=== PATIENT | female | born 1940 | race Caucasian/White ===

== ENCOUNTER 2016-11-08 12:00 | Inpatient (IN) ==
--- NOTE | 2016-11-08 12:29 | EKG Report ---
Test Performed on : 11/08/2016 12:23:08 PM Test Reason : CHEST PAIN Blood Pressure : / mmHG Vent. Rate : 079 BPM Atrial Rate : 079 BPM P-R Int : 140 ms QRS Dur : 076 ms QT Int : 374 ms P-R-T Axes : 030 021 062 degrees QTc Int : 428 ms Normal sinus rhythm. Normal ECG When compared with ECG of 25-AUG-2016 10:39, No significant change was found Unconfirmed Result
--- NOTE | 2016-11-08 12:37 | Diag Imaging Result Doc PS360 ---
EXAM: CHEST-2 VIEWS HISTORY: CP TECHNIQUE: Two views COMPARISON: 08/30/2016 FINDINGS: The lungs are well expanded. The heart is not enlarged. The vessels are not distended. No change in the right-sided portacatheter. No pneumothorax. There are no infiltrates. No pleural effusions. Mild scoliosis. IMPRESSION: Stable chest. Electronically signed by Braydon Krishnan 11/08/2016 12:34 PM
--- NOTE | 2016-11-08 13:00 | PROVIDER DOCUMENTATION ---
HPI-General Adult - General Chief Complaint: Chest Pain Stated Complaint: CHEST PAIN Time Seen by Provider: 11/08/16 12:30 Source: patient Allergies/Adverse Reactions: Patient Allergies Allergy/AdvReac Type Severity Reaction Status Date / Time ampicillin Allergy Unknown Verified 08/25/16 10:11 aspirin Allergy Unknown Verified 10/25/14 10:08 chloramphenicol Allergy Unknown Verified 08/25/16 10:11 [From Chloromycetin] midazolam HCl * [From Versed] Allergy Unknown Verified 10/25/14 10:08 Penicillins Allergy Unknown Verified 10/25/14 10:08 streptomycin Allergy ANAPHYLAXIS Verified 08/25/16 10:11 lonoxin AdvReac ANAPHYLAXIS Uncoded 10/25/14 10:08 Home Medications: Home Medication List Medication Instructions Recorded Confirmed Last Taken Type Diltiazem C.d. [Cardizem Cd] 150 mg PO DAILY 10/25/14 08/29/16 08/28/16 22:00 History Glipizide [Glipizide ER] 5 mg PO BID 10/25/14 08/29/16 08/28/16 22:00 History Levothyroxine [Synthroid] 75 mcg PO DAILY 10/25/14 08/29/16 08/28/16 07:00 History Lisinopril 2.5 mg PO DAILY 10/25/14 08/29/16 08/28/16 22:00 History Metformin [Glucophage] 500 mg PO BID 10/25/14 08/29/16 08/28/16 22:00 History Omeprazole [Prilosec] 20 mg PO DAILY@0700 #30 capsule 10/25/14 08/29/16 08:00 Rx PRAVAstatin [Pravachol] 40 mg PO DAILY 10/25/14 08/29/16 08/28/16 22:00 History Sotalol [Betapace] 80 mg PO DAILY 10/25/14 08/29/16 08/28/16 22:00 History Calcium Carbonate [Calcium] 600 mg PO DAILY 08/25/16 08/29/16 08/28/16 07:00 History Cyanocobalamin (Vitamin B-12) 1,000 mcg PO DAILY 08/25/16 08/29/16 08/28/16 07: 00 History [Vitamin B-12] Loratadine [Claritin] 10 mg PO DAILY 08/25/16 08/29/16 08/28/16 07:00 History Lutein 20 mg PO DAILY 08/25/16 08/29/16 08/01/16 07:00 History Montelukast Sodium 10 mg PO DAILY 08/25/16 08/29/16 08/28/16 07:00 History Vitamin E 400 unit PO DAILY 08/25/16 08/29/16 07/31/16 07:00 History Hydrocodone/Acetaminophen [[place] 1 each PO Q4H PRN PRN #40 tablet 08/30/16 Unknown Rx 10-325 Tablet] Ondansetron HCl [Zofran] 4 mg PO Q4H PRN PRN #20 tablet 08/30/16 Unknown Rx Warfarin Sodium [Coumadin] 1 mg PO DAILY #100 tablet 08/30/16 Unknown Rx - History of Present Illness -Gen Adult Nature of Presenting Problems: Pt. is 76 yof that presents with sharp pain that is under her left arm and moves around her chest on the left side. Pt. reports the pain is increased with inspiration, touch, or lying flat. Pt. denies any SOB, N/V, or diaphoresis. Pt. states she is currently being treated for Ovarian CA and has had a double mastectomy. Pt. states she was in her oncology office this morning and when she told the GERONTOLOGICAL NURSE PRACTITIONER there about her pain she was told to come directly to the ED. Pt. denies any other symptoms at time of exam. Location of Pain/Injury: reports: chest, back. denies: none, head, face, mouth , neck, upper extremity, hand(s), abdomen, pelvis, genitalia, lower extremity, feet, upper body, lower body, generalized, other Pain Radiation: reports: no radiation. denies: arm(s), back, buttocks, chest, epigastric, feet, groin, jaw, flank (L), legs (lower), LLQ, LUQ, neck, periumbilical, flank (R), RLQ, RUQ, shoulder(s), scapula, scrotal, sternal notch , suprapubic, legs (upper), urethral, vaginal, other Quality of Pain: reports: sharp, stabbing. denies: aching, burning, cramping, dull, fullness, indigestion, pressure, tearing, throbbing, tightness Severity: reports: moderate. denies: mild, severe Onset/Duration: reports: abrupt, last night Timing: reports: still present, intermittent. denies: improving, gone now, resolved prior to arrival, constant, changing over time, getting worse Context/Activities at Onset: reports: none. denies: recent emotional stress, recent physical stress, recent trauma history, possible bad food, cold exposure , eating, out of country travel Modifying Factors: improves with: nothing Associated Symptoms: reports: pain with inspiration. denies: denies symptoms, anxiety, arm pain, back/neck pain, chest pain, constipation, cough, diaphoresis , diarrhea, dizziness, EENT symptoms, fatigue, fever/chills, genitourinary problems, headaches, heartburn, joint pain, loss of appetite, malaise, muscle aches, sinus congestion/drainage, nausea, rash, seizure, shortness of breath, sensory/motor loss, swelling/mass in abdomen, syncope, vomiting, weakness, trouble walking, other Similar Symptoms Previously?: Yes Recently seen or treated by another doctor?: Yes Review of Systems - Adult - REVIEW OF SYSTEMS - ADULT Constitutional: reports: see HPI. denies: chills, fever, fatique Eyes: reports: see HPI. denies: discharge, blurred vision, eye pain Ears, Nose, Mouth & Throat: reports: see HPI. denies: ear pain, sinus problem, mouth/dental pain, throat pain Cardiovascular: reports: see HPI. denies: chest pain, irregular heart rate, palpitations, syncope Respiratory: reports: see HPI, pleurisy. denies: cough, dyspnea on exertion, shortness of breath, wheezing Gastrointestinal: reports: see HPI. denies: abdominal pain, diarrhea, nausea, vomiting Genitourinary: reports: see HPI. denies: dysuria, discharge, hematuria, incontinence, urgency Musculoskeletal: reports: see HPI. denies: bone pain, joint pain, muscle aches , neck pain Integumentary: reports: see HPI. denies: hives, itching, rash, skin thickening Neurological: reports: see HPI. denies: ataxia, headache/migraines, numbness, seizure, tremors Psychiatric: reports: see HPI. denies: anxiety, depression, emotional problems , insomnia, panic attacks, suicidal thoughts Past History - Adult - PAST MEDICAL HISTORY-ADULT Review of Records: reports: Old Records Reviewed, Nursing Assessment Review, Medications Reviewed, Social history reviewed & non-contributory. Cardiovascular: reports: arrhythmia Respiratory: reports: denies history Gastrointestinal: reports: cholelithiasis, hemorrhoids Genitourinary: reports: denies history Musculoskeletal: reports: neck/back injury Neurological: reports: denies history Psychiatric: reports: denies history Endocrine/Immune: reports: denies history Other Conditions: reports: denies history - PRIOR SURGERIES/PROCEDURES Surgical/Procedure History: reports: appendectomy, cholecystectomy, hysterectomy , tonsillectomy (mastectomy), other - IMMUNIZATION STATUS Childhood Immunizations: See Nurse Assessment Flu Vaccine: See Nurse Assessment - FAMILY HISTORY Family History: reviewed, not pertinent - SOCIAL HISTORY Smoking: non-smoker Physical Exam-General - PHYSICAL EXAM-ADULT Initial Vital Signs Reviewed: Yes - CONSTITUTIONAL General Appearance: alert, moderate distress, thin. negative: obese, anxious, lethargic, slow to respond, obtunded, combative - EYES Eyes: PERRL/EOMI, pink conjunctivae. negative: conjuctival exudate, scleral icterus, subconjunctival hemorrhage - HEAD, EARS, NOSE, MOUTH & THROAT HENMT: normocephalic/atraumatic, moist mucous membranes. negative: angioedema, frontal tenderness, maxillary tenderness - NECK Neck: non-tender, full range of motion, supple, normal inspection. negative: lymphadenopathy, trachial deviation, thyromegaly - RESPIRATORY Respiratory: lungs clear, decreased breath sounds (Decreased due to pain and not taking a deep breath), pain on inspiration. negative: crackles, rales, rhonchi, stridor, wheezing - CARDIOVASCULAR Cardiovascular: normal peripheral pulses, regular rate, rhythm, no edema, no JVD , no murmur. negative: extra beats, friction rub, irregularly irregular - GASTROINTESTINAL (ABDOMEN) Abdominal Exam: normal bowel sounds, non tender, soft. negative: distended, guarding, rigid, rebound, tenderness, hernia, mass - LYMPHATIC Lymphatic: no adenopathy. negative: axilla node tender, cervical node tenderness - MUSCULOSKELETAL Back Exam: normal inspection, no CVA tenderness, no vertebral tenderness. negative: ecchymosis, swelling, vertebral tenderness Extremity: normal range of motion, non-tender, normal gait, normal inspection, pedal edema. negative: deformity, erythema, inflammation, tenderness Peripheral Pulses: radial (R): 2+, radial (L): 2+ - SKIN Integumentary: normal turgor, warm/dry, pallor. negative: cyanosis, diaphoresis , ecchymosis, erythema, jaundice, mottled, petechiae, purpura, rash, swelling, tenderness - NEUROLOGIC Neurologic: grossly normal, no motor/sensory deficits. negative: aphasia, facial droop, focal weakness, motor weakness, sensory deficit - PSYCHIATRIC Psych/Mental Status: normal mood/affect, normal thought content, normal thought process, oriented x 3. negative: anxious, paranoid, tearful Progress - PLAN OF CARE/RESULTS Progress/Plan/Lab Results: Vital Signs - 8 hr 11/08/16 12:04 Temperature 98.7 F Pulse Rate 80 Respiratory Rate 18 Blood Pressure 161/79 O2 Sat by Pulse Oximetry 97 Orders Category Date Time Status Cardiac Monitoring DIRECTED Care 11/08/16 12:13 Active Cardiac Monitoring DIRECTED Care 11/08/16 12:14 Inactive Oxygen Therapy- ED Nursing DIRECTED Care 11/08/16 12:13 Active Saline Loc NOW Care 11/08/16 12:13 Active Saline Loc NOW Care 11/08/16 12:14 Inactive CHEST-2 VIEWS [RAD] Stat Exams 11/08/16 12:13 Completed CBC WITH ELECTRONIC DIFF [HEME] Stat Lab 11/08/16 12:13 Ordered CK PROFILE [SP CHEM] Stat Lab 11/08/16 12:13 Ordered COMPREHENSIVE METABOLIC PANEL [CHEM] Stat Lab 11/08/16 12:13 Ordered D-DIMER [address] [COAG] Stat Lab 11/08/16 12:13 Ordered MAGNESIUM [CHEM] Stat Lab 11/08/16 12:13 Ordered PRO B-NATRIURETIC PEPTIDE Stat Lab 11/08/16 12:[address]IME WITH INR PL [COAG] Stat Lab 11/08/16 12:[address] [COAG] Stat Lab 11/08/16 12:13 Ordered TROPONIN T Stat Lab 11/08/16 12:13 Ordered EKG [EKG] Stat Ther 11/08/16 12:13 Draft Discussed results and plan of care with patient. Patient agrees with plan and verbalizes understanding. Result Diagrams: 11/08/16 13:00 11/08/16 13:00 - XRAY 1 XRAY Study: Chest XRAY Interpretation: Stable chest ([place]) - CT/MRI 1 CT Study: Thorax (1. Acute PE on the right with a moderate clot burden as described. Small left pleural effusion an dmild left basilar subsegmental atelectasis. (Francisco)) CT Results: See note - CONSULTS/PCP/HOSPITALIST Notification #1 *Consult/PCP/Hospitalist*: Dr. Shaw Time Discussed: 15:51 Reason/Comments: Admission Consult Disposition: Admit Departure - Departure Date of Disposition Decision: 11/08/16 Time of Disposition Decision: 15:33 DIAGNOSIS: Hyperglycemia Pulmonary embolism Qualifiers: Pulmonary embolism type: other Chronicity: acute Acute cor pulmonale presence: without acute cor pulmonale Qualified Code(s): I26.99 - Other pulmonary embolism without acute cor pulmonale Leukocytosis Qualifiers: Leukocytosis type: unspecified Qualified Code(s): D72.829 - Elevated white blood cell count, unspecified Disposition: ADMITTED INPATIENT 09 Certified Medical Emergency: Emergent Condition: Stable Referrals and Follow-Ups: Ata Pugh MD [Primary Care Provider] - - Critical Care Note This patient required my direct & personal management of CC.: No Attestation - Physician/ JA Attestation Patient care was provided by Advanced Practice Provider:: Yes Advanced Practice Provider:: Debbie Vallejo (The physician is on site and did have face to face contact with the patient. ) Advanced Practice Provider documentation review:: The Mid-level provider documentation, treatment plan and medical decision making was reviewed by the physician who agrees with all treatment and medical decision making by the P. The physician spent face to face time with patient:: Yes Advanced Practice Provider documentation review:: Supervising physician onsite and consulted in the evaluation and care of this patient. The physician did have a face to face encounter with the patient.
[2016-11-08 13:22] LABS: BASO% 0.1 % (0.0-0.8); HEMATOCRIT 35.6 % (37.0-47.0); HEMOGLOBIN 11.4 g/dL (12.0-16.0); IMM GRAN% 1.6 % (0.0-0.5); LYMPH# 2.26 X1000 (1.2-3.4); LYMPH% 9.1 % (20.5-51.1); MANUAL DIFF NEEDED? NO; MCV 84.2 FL (81-99); MONO# 1.92 X1000 (0.11-0.59); MONO% 7.7 % (1.7-9.3); MPV 8.8 FL (7.4-10.4); NEUT% 81.5 % (42.2-75.2); PLT 149 X1000 (130-400); RBC 4.23 XMIL (4.2-5.4)
[2016-11-08 13:31] LABS: PTT PL 31.8 Seconds (22.6-43.9)
[2016-11-08 13:33] LABS: AGAP 10; ALBUMIN 3.3 g/dL (3.5-5.0); ALKALINE PHOSPHATASE 133 U/L (32-104); BUN 10 mg/dL (8-22); CALCIUM 9.1 mg/dL (8.8-10.2); CHLORIDE 100 mmol/L (98-107); CK PROFILE 12 U/L (24-173); COSMO 281; GOT 12 U/L (10-30); GPT 13 U/L (10-36); MAGNESIUM 1.5 mg/dL (1.5-2.7); POTASSIUM 5.2 mmol/L (3.5-5.1); SODIUM 136 mmol/L (136-145); TCO2 25 mmol/L (25-35); TOTAL PROTEIN 6.4 g/dL (6.3-8.3)
[2016-11-08 13:51] LABS: INR 1.05 (0.86-1.15); PROTIME 14.6 Seconds (12.1-15.5)
--- NOTE | 2016-11-08 15:21 | Diag Imaging Result Doc PS360 ---
EXAM: CT THORAX W/CONTRAST INDICATION: Left sided sharp pain in chest TECHNIQUE: Dose reduction protocol was used. COMPARISON: None. FINDINGS: There are filling defects seen in central branches of the right pulmonary artery leading to the right upper lobe and right lower lobe consistent with acute pulmonary emboli. Clot burden is moderate. The heart is not enlarged. There is patchy aortic atherosclerotic calcification. There is no evidence of aortic aneurysm. There is no significant mediastinal or hilar lymphadenopathy. There is a small left pleural effusion and mild left basilar atelectasis. The lungs are clear otherwise. IMPRESSION: 1.Acute pulmonary embolism on the right with a moderate clot burden as described. 2.Small left pleural effusion and mild left basilar subsegmental atelectasis. The findings were discussed with Rosy Martinez MD at 11/08/2016 3:18 PM. Electronically signed by Pankaj Francisco 11/08/2016 3:19 PM
[2016-11-08] MEDS ORDERED: LOVENOX 1 MG/KG SUBQ ONE (15:38)
[2016-11-08] MEDS ORDERED: LOVENOX ONE (15:44)
--- NOTE | 2016-11-08 15:45 | ED EKG INTERP ---
This chart was entered by Mehreen Bird Scribe, acting as scribe for Rosy Martinez MD. EKG Interpretation - EKG Time of EKG reading by physician:: 12:23 EKG Read and Signed by:: Rosy Martinez EKG Interpretation (*Must complete 3 of following elements*): Normal Rate: 79 Rhythm: NORMAL SINUS [place]: normal QRS: normal AL Interval: normal ST Wave: normal Attestation - Physician/ JA Attestation Patient care was provided by Advanced Practice Provider:: No The physician spent face to face time with patient:: Yes Advanced Practice Provider documentation review:: Supervising physician onsite and consulted in the evaluation and care of this patient. The physician did have a face to face encounter with the patient. This chart was documented by the indicated scribe, (Mehreen Bird Scribe) and accurately reflects the services I performed and decisions made by meJuan Wenli X, MD, as attested by the provider's signature.
[2016-11-08] MEDS ORDERED: ZOFRAN IV PRN (15:51)
[2016-11-08] MEDS ORDERED: NS 1,000 ML IV ONE (15:51)
[2016-11-08] MEDS: SEPTRA DS PO SCH ×2 (16:21→21:03)
[2016-11-08] MEDS ORDERED: ZOFRAN ODT PO PRN (18:05)
[2016-11-08] MEDS: NORCO-10 PO PRN (18:46)
--- NOTE | 2016-11-08 19:07 | HISTORY AND PHYSICAL ---
CHIEF COMPLAINT: Chest pain, left chest to left axillary area. HISTORY OF PRESENT ILLNESS: This is a 76-year-old female who presented to the emergency room complaining of a sharp pain that started in her left axillary area. She states it then moved around to the left side of her chest. It did increase with inspiration or with palpation. She denied any shortness of breath, nausea, vomiting. She is currently being treated for ovarian cancer. She was being evaluated by her oncology physician and after informing him of this pain, she was sent to the emergency room. She was found to have a D-dimer of 1.4. CTA pulmonary was performed which revealed acute pulmonary embolism on the right with a moderate clot burden, a small left pleural effusion with mild left basilar subsegmental atelectasis. She was given 1 mg/kg of Lovenox and admitted for further evaluation and treatment. PAST MEDICAL HISTORY: 1. History of left breast cancer status post bilateral mastectomy. 2. Ovarian cancer, currently receiving treatment. 3. Diabetes mellitus. 4. Gastroesophageal reflux disease. 5. Hypertension. 6. Deep vein thrombosis left lower extremity in April 2016. PAST SURGICAL HISTORY: Appendectomy, cholecystectomy, cataract removal, hysterectomy, mastectomy, bilateral tonsillectomy. SOCIAL HISTORY: She denies alcohol, tobacco, or illicit drug use. ALLERGIES: Ampicillin, aspirin, Chloromycetin, Versed, penicillin which causes unknown reaction, streptomycin which causes anaphylaxis, Levoxine which causes anaphylaxis. HOME MEDICATIONS: Zofran 4 mg p.o. p.r.n., Cardizem CD 150 daily, lutein 20 mg daily, metformin 500 b.i.d., fluconazole 100 daily, lisinopril 2.5 at bedtime, Synthroid 75 mcg daily, Coumadin 1 mg daily, Pravachol 40 at bedtime, Betapace 80 at bedtime, Claritin 10 daily, Prilosec 20 daily, [place] 10/325 q.4 hours p.r.n., glipizide ER 5 b.i.d. REVIEW OF SYSTEMS: A 14 point review of systems is discussed with patient with pertinent positives stated in HPI. She denied palpitations, syncope, dizziness, shortness of breath, PND, orthopnea, cough, fever chills, nausea, vomiting, diarrhea, constipation, black or bloody vomitus, black or bloody stools. PHYSICAL EXAMINATION: GENERAL: This is a 76-year-old female who is sitting in the bed, in no distress. VITAL SIGNS: Blood pressure is 127/92, with a heart rate of 79, respirations are 18, temperature is 98.9 degrees, with room air saturations 98%. HEENT: Head is normocephalic, atraumatic. Pupils equal, round, react to light. EOMs are intact. Sclerae are anicteric. Mucous membranes are dry. NECK: Supple with trachea midline. CARDIOVASCULAR: Regular rate and rhythm. S1 and S2 appreciated. PULMONARY: Breath sounds are clear. They are decreased in bilateral bases with no increased work of breathing noted. GASTROINTESTINAL: Abdomen is soft, nontender, nondistended. Bowel sounds in all 4 quadrants. BACK: No CVAT. No spine tenderness. MUSCULOSKELETAL: Good range of motion of joints. NEUROLOGIC: She is alert and oriented x3. EXTREMITIES: No clubbing, cyanosis, or edema. Calves are nontender. Pulses are palpable x4. LABS: WBC is 24.8, with hemoglobin 11.4, hematocrit 35.6, and platelets 149,000. D-dimer is 1.4 with an INR of 1.05. Sodium is 136, potassium 5.2, BUN 10, creatinine 0.8, with a glucose of 285. Troponin is less than 0.010. CTA pulmonary revealed acute pulmonary embolus on the right with a moderate amount of clot burden. Chest x-ray revealed a stable chest. CTA also revealed left basilar subsegmental atelectasis. ASSESSMENT: 1. Pulmonary embolus, acute. 2. Leukocytosis. 3. Left subsegmental atelectasis. 4. Diabetes mellitus type 2. 5. Gastroesophageal reflux disease. 6. Hypertension. 7. Ovarian cancer, currently receiving treatment. PLAN: She will be admitted to the hospital. She will be placed on telemetry. We will give gentle IV hydration. We will continue Lovenox 1 mg/kg b.i.d. Will give 5 mg of warfarin tonight. We will get daily INRs. We will hold her antidiabetic medications especially her metformin as she has had contrast. We will place her on pattern blood glucose with sliding scale insulin. We will continue the rest of her medications as appropriate. We will add blood cultures onto her ER labs. We will continue Bactrim b.i.d. Further treatments pending hospital course. Dictated by RAMONITA Rm for Genaro Shaw MD cc: RAMONITA Rm MD
[2016-11-08] MEDS ORDERED: COUMADIN PO ONE (21:00)
[2016-11-08] MEDS: PRINIVIL PO SCH (21:02)
[2016-11-08] MEDS: PRAVACHOL PO SCH (21:02)
[2016-11-08] MEDS: GLUCOTROL XL PO SCH (21:02)
[2016-11-08] MEDS: BETAPACE PO SCH (21:02)
[2016-11-08] MEDS: HUMALOG SUBQ SCH (21:55)
[2016-11-09] MEDS: NORCO-10 PO PRN ×2 (00:02→06:05)
--- NOTE | 2016-11-09 04:53 | HISTORY AND PHYSICAL ---
ADDENDUM: Patient seen and standing. She notes that she went to Dr. Olvera's office today was complaining of left-sided chest pain. They christina labs and sent to the ER. Upon evaluation in the ER she was noted to have a right pulmonary emboli with large clot burden and therefore was felt best that she be admitted to the hospital. She is currently taking Coumadin only prophylactically, her INR is 1.4. She is not taking it therapeutically. She has not had any previous clots in the past. She does have a known history of ovarian cancer. PHYSICAL EXAM: VITAL SIGNS: Stable. GENERAL: She is awake, alert, she is very pleasant to talk with. She is in no respiratory distress. CV: Regular rate. CHEST: Clear. PLAN: Will admit patient to the hospital. IV Lovenox for the next 24 hours and then will consider either Eliquis, Coumadin or Xarelto depending on insurance coverage. Patient is noted to have a white count elevated at 24. Her CT of the chest did not show any type of infection. We will check urine and blood culture. Will not start antibiotics presently as this certainly can be inflammatory at this point. cc: Genaro Shaw MD
[2016-11-09] MEDS: PRILOSEC PO SCH (06:05)
[2016-11-09] MEDS: SYNTHROID PO SCH (06:05)
[2016-11-09] MEDS: HUMALOG SUBQ SCH ×2 (06:19→11:53)
[2016-11-09] MEDS ORDERED: NORCO-10 PO PRN (07:59)
[2016-11-09] MEDS ORDERED: LOVENOX SUBQ SCH (08:00)
[2016-11-09 08:05] LABS: HEMATOCRIT 33.1 % (37.0-47.0); HEMOGLOBIN 10.6 g/dL (12.0-16.0); MCV 84.2 FL (81-99); MPV 9.1 FL (7.4-10.4); RBC 3.93 XMIL (4.2-5.4)
[2016-11-09 08:14] LABS: INR 1.32 (0.86-1.15); PROTIME 17.4 Seconds (12.1-15.5)
[2016-11-09 08:26] LABS: AGAP 9; ALBUMIN 3.2 g/dL (3.5-5.0); ALKALINE PHOSPHATASE 130 U/L (32-104); BUN 7 mg/dL (8-22); CALCIUM 8.4 mg/dL (8.8-10.2); CHLORIDE 104 mmol/L (98-107); COSMO 274; GOT 11 U/L (10-30); GPT 11 U/L (10-36); POTASSIUM 3.6 mmol/L (3.5-5.1); SODIUM 138 mmol/L (136-145); TCO2 25 mmol/L (25-35); TOTAL PROTEIN 6.1 g/dL (6.3-8.3)
[2016-11-09] MEDS ORDERED: GLUCOPHAGE PO SCH (09:00)
[2016-11-09] MEDS: CLARITIN PO SCH (09:11)
[2016-11-09] MEDS: SINGULAIR PO SCH (09:11)
[2016-11-09] MEDS: CARDIZEM CD PO SCH ×2 (09:11→21:01)
[2016-11-09] MEDS: CARDIZEM PO SCH ×2 (09:11→20:59)
[2016-11-09] MEDS: LASIX IV SCH ×2 (09:11→21:02)
[2016-11-09] MEDS: GLUCOTROL XL PO SCH ×2 (09:11→20:59)
[2016-11-09] MEDS: SEPTRA DS PO SCH ×2 (09:23→20:59)
[2016-11-09] MEDS: PATIENT'S OWN MED PO SCH (09:23)
--- NOTE | 2016-11-09 16:00 | PROGRESS NOTE ---
DATE: 11/09/2016 SUBJECTIVE: Ms. Verde has no complaints. At present, she states that she is having intermittent pain just at her lower left rib cage. It does increase with cough or inspiration. She does state her pain medications are relieving the pain very well. OBJECTIVE: Vital Signs: Blood pressure is 117/65 with a heart rate of 75, respirations 18, temperature 97.6 degrees oral with O2 saturations of 99%-100% on 2 L nasal cannula. Cardiovascular: Regular rate and rhythm. S1 and S2 are appreciated. Pulmonary: Breath sounds are clear with no increased work of breathing noted. Gastrointestinal: Abdomen is soft, nontender, nondistended. Bowel sounds in all 4 quadrants. Extremities: No clubbing, cyanosis, or edema. Calves are nontender. Pulses are palpable x4. Neurologic: She is alert and oriented x3. LABORATORY DATA: WBC is 17.3 with hemoglobin 10.6, hematocrit 33.1 and platelets of 139,000. Sodium is 138, potassium 3.6. BUN 7, creatinine 0.7 with blood sugars ranging in the 85-208 range. ASSESSMENT: 1. Deep venous thrombosis left lower extremity. 2. Acute pulmonary embolus. 3. Leukocytosis. 4. Left subsegmental atelectasis. 5. Diabetes mellitus, type 2. 6. Gastroesophageal reflux disease. 7. Hypertension. 8. Ovarian cancer, currently receiving treatment. PLAN: We will continue with the current medical regimen. She remains afebrile. White count is decreasing. We will continue to monitor as her CT of the chest did not show any infection and blood cultures and urine cultures continue pending. The patient states that she cannot afford Xarelto. We will start 15 mg b.i.d. Hopefully, she will be able to go home tomorrow. Dictated by RAMONITA Rm for Genaro Shaw MD cc: RAMONITA Rm MD
[2016-11-09] MEDS: HUMALOG DOSE (PARKWAY) SUBQ SCH ×2 (16:21→22:11)
[2016-11-09] MEDS: PRAVACHOL PO SCH (20:59)
[2016-11-09] MEDS: BETAPACE PO SCH (20:59)
[2016-11-09] MEDS: XARELTO PO SCH (21:00)
[2016-11-09] MEDS: PRINIVIL PO SCH (21:01)
[2016-11-10 02:11] LABS: BILIRUBIN URINE NEGATIVE (NEGATIVE); BLOOD URINE 4+ (NEGATIVE); CLARITY CLEAR (CLEAR); COLOR YELLOW; GLUCOSE URINE NEGATIVE (NEGATIVE); LEUKOCYTES URINE TRACE (NEGATIVE); NITRITE URINE NEGATIVE (NEGATIVE); PROTEIN URINE NEGATIVE (NEGATIVE); UROBILINOGEN URINE NORMAL
[2016-11-10 02:24] LABS: URINE CULTURE PL NEEDED? YES; URINE EPITHELIAL CELLS <10 /HPF (<10); URINE WBC <10 /HPF (<10)
[2016-11-10 02:25] LABS: URINE SMALL ROUND CELLS TRANSITIONAL PRESENT; URINE SOURCE CLEAN CATCH
--- NOTE | 2016-11-10 03:48 | PROGRESS NOTE ---
DATE: 11/09/2016 ADDENDUM REPORT SUBJECTIVE: Patient is seen and examined. She is awake, alert. She is in no distress. She is still having some left-sided chest pain. It is unclear as to the etiology of this. She states it hurts worse with movement and with a deep breath. Interestingly, she is having no right-sided chest pain which is where the CT showed the pulmonary emboli. PHYSICAL EXAMINATION: Vital Signs: Stable. General: She is awake, alert, lying quietly in the bed, pleasant to talk with. Neck: Supple. Cardiovascular: Regular rate. Chest: Clear. PLAN: We will continue her Lovenox today. We will wait to see if Xarelto is affordable. If so, we will transition her to Xarelto and discharge home in the a.m. Currently her white count actually decreased from 24 down to 17. We will start her on antibiotic although I believe the white count is more inflammatory from her recent steroid. We will follow. cc: Genaro Shaw MD
[2016-11-10] MEDS: PRILOSEC PO SCH (06:06)
[2016-11-10] MEDS: SYNTHROID PO SCH (06:06)
[2016-11-10] MEDS: HUMALOG DOSE (PARKWAY) SUBQ SCH ×2 (06:07→11:47)
[2016-11-10 06:58] LABS: HEMATOCRIT 34.6 % (37.0-47.0); MCH 26.5 PG (27-31); MCHC 31.8 g/dL (33-37); MCV 83.4 FL (81-99); MPV 9.5 FL (7.4-10.4); RBC 4.15 XMIL (4.2-5.4)
[2016-11-10 07:17] LABS: AGAP 10; ALBUMIN 3.3 g/dL (3.5-5.0); ALKALINE PHOSPHATASE 188 U/L (32-104); BUN 8 mg/dL (8-22); CALCIUM 8.6 mg/dL (8.8-10.2); CHLORIDE 102 mmol/L (98-107); COSMO 278; GOT 15 U/L (10-30); GPT 13 U/L (10-36); POTASSIUM 4.4 mmol/L (3.5-5.1); SODIUM 139 mmol/L (136-145); TCO2 28 mmol/L (25-35); TOTAL PROTEIN 6.2 g/dL (6.3-8.3)
[2016-11-10] MEDS: CARDIZEM PO SCH (09:55)
[2016-11-10] MEDS: SINGULAIR PO SCH (09:55)
[2016-11-10] MEDS: SEPTRA DS PO SCH (09:55)
[2016-11-10] MEDS: GLUCOTROL XL PO SCH (09:55)
[2016-11-10] MEDS: LASIX IV SCH (09:56)
[2016-11-10] MEDS: CARDIZEM CD PO SCH (09:56)
[2016-11-10] MEDS: CLARITIN PO SCH (09:56)
[2016-11-10] MEDS: XARELTO PO SCH (09:56)
[2016-11-10] MEDS: PATIENT'S OWN MED PO SCH (09:58)
[2016-11-10 11:32] VITALS: BP 100/63
--- NOTE | 2016-11-11 08:11 | DISCHARGE SUMMARY ---
ADMISSION DATE: 11/08/2016 DISCHARGE DATE: 11/10/2016 ADDENDUM REPORT Patient was seen and examined this morning by myself. She is awake, alert. She is in no distress. Notes that her left-sided chest wall pain is actually improved. Still having it, but nothing as severe as it was. Denies any current palpitations. Denies any fevers or chills. Notes that she tolerates Xarelto well. Patient is awake and alert. Her lungs are clear. She is in no distress. DISPOSITION: Patient will be discharged home on Xarelto. Will follow up outpatient with primary care. cc: Genaro Shaw MD
--- NOTE | 2016-11-11 14:20 | DISCHARGE SUMMARY ---
ADMISSION DATE: 11/08/2016 DISCHARGE DATE: 11/10/2016 DIAGNOSES: 1. Deep venous thrombosis left lower extremity. 2. Acute pulmonary embolus. 3. Leukocytosis. Resolving. 4. Left subsegmental atelectasis. 5. Diabetes mellitus type 2. 6. Gastroesophageal reflux disease. 7. Ovarian cancer. Currently receiving treatment per Dr. Olvera. DIAGNOSTICS: 1. On 11/08/2016 CT of the chest revealed acute pulmonary embolism on the right with a moderate clot burden, a small left pleural effusion and mild left basilar subsegmental atelectasis. 2. Blood cultures x2 revealed no growth after 48 hours. 3. Urine culture is pending. HOSPITAL COURSE: Ms. Verde presented to the emergency room under the guidance of Dr. Olvera and his nurse practitioner as she was having some left lower chest that did radiate around to her back. She was found to have a right-sided pulmonary embolus with filling defects seen and in the central branches of the right pulmonary artery leading to the right upper lobe and right lower lobe. Clot burden is moderate. She was started on Lovenox 1 mg/kg. Once we verified that she could afford Xarelto this was started. During the hospitalization she has denied any shortness of breath. She has continued to have some left lower rib cage pain. This is mostly on taking a deep breath and moving. She was noted to have a white count of 24 with urine that revealed 10-20 microscopic red blood cells, less than 10 white microscopic white blood cells. Urine culture is pending. She was placed on Bactrim. PHYSICAL EXAMINATION: Cardiovascular: Regular rate and rhythm. S1 and S2 appreciated. Pulmonary: Breath sounds are clear with no increased work of breathing. Chest does rise and fall symmetrically with respiration. Gastrointestinal: Soft, nontender, nondistended with bowel sounds in all 4 quadrants. Musculoskeletal: Good range of motion of joints. Neurologic: She is alert and oriented x3 with cranial nerves 2-12 grossly intact. Extremities: No clubbing, cyanosis, or edema. Calves are nontender. Pulses are palpable x4. Vital Signs: Blood pressure is 134/63 with a heart rate of 72, respirations 18, temperature 98.6 degrees oral with room air saturations of 94%-97%. DISCHARGE ACTIVITY: As tolerated. DISCHARGE DIET: Diabetic. DISCHARGE MEDICATIONS: Zofran 4 mg p.o. q.4 hours p.r.n., Cardizem CD 150 mg daily, Glucophage 500 p.o. b.i.d., fluconazole 100 daily, lisinopril 2.5 at bedtime, Synthroid 75 mcg daily, Pravachol 40 mg at bedtime, Betapace 80 at bedtime, Claritin 10 mg daily, Prilosec 20 mg daily, Glipizide 5 b.i.d., Lasix 40 mg daily for 4 days, Bactrim-DS 1 tablet b.i.d. for 7 days, Flonase nose spray 1 spray to each nostril daily, Xarelto 15 mg 1 p.o. b.i.d. for 21 days then 20 mg daily, start on day 22. FOLLOWUP: She is to follow up with Dr. Olvera within the next week, sooner if needed. She is being discharged home in stable condition with family members. TIME SPENT: This is a greater than 30 minute discharge. Dictated by RAMONITA Rm for Genaro Shaw MD cc: RAMONITA Rm MD
== END 2016-11-10 12:32 | disposition home or self-care (01) ==
LOC: P.ED 12:00 → P.MEDSURG 16:25
PROVIDERS: ATTEND Family Medicine

== ENCOUNTER 2018-03-19 11:08 | Inpatient (IN) ==
--- NOTE | 2018-03-19 11:48 | Diag Imaging Result Doc PS360 ---
EXAM: CHEST-PORTABLE HISTORY: sob met ca TECHNIQUE: Chest single view COMPARISON: 03/05/2018 FINDINGS: Moderate sized left-sided pleural effusion remains. It is similar to the prior study. There is basilar atelectasis on the left and there may be underlying infiltrates. The right lung remains well expanded and clear. No change in the right-sided portacatheter. IMPRESSION: Stable chest. Electronically signed by Braydon Krishnan 03/19/2018 11:46 AM
[2018-03-19] MEDS ORDERED: LASIX IV ONE (11:54)
[2018-03-19 12:19] LABS: BASO# 0.02 X1000 (0.0-0.2); BASO% 0.1 % (0.0-0.8); EOS# 0.01 X1000 (0.0-0.7); HEMATOCRIT 34.8 % (37.0-47.0); HEMOGLOBIN 10.8 g/dL (12.0-16.0); IMM GRAN# 0.25 X1000 (0.0-0.04); LYMPH# 1.07 X1000 (1.2-3.4); LYMPH% 4.2 % (20.5-51.1); MCH 29.6 PG (27-31); MCV 95.3 FL (81-99); MONO# 1.81 X1000 (0.11-0.59); MPV 8.5 FL (7.4-10.4); NEUT# 22.52 X1000 (1.4-6.5); NEUT% 87.7 % (42.2-75.2); PLT 277 X1000 (130-400); RBC 3.65 XMIL (4.2-5.4); RDW 17.9 % (11.5-14.5); WBC 25.68 X1000 (4.8-10.8)
[2018-03-19 12:34] LABS: AGAP 10; ALBUMIN 2.5 g/dL (3.5-5.0); ALKALINE PHOSPHATASE 139 U/L (32-104); BUN 9 mg/dL (8-22); CALCIUM 8.1 mg/dL (8.8-10.2); CHLORIDE 90 mmol/L (98-107); COSMO 271; CREATININE 0.5 mg/dL (0.5-0.9); ESTIMATED GFR > 60; GLUCOSE 165 mg/dL (70-104); GOT 14 U/L (10-30); GPT 6 U/L (10-36); MAGNESIUM 1.5 mg/dL (1.5-2.7); POTASSIUM 3.4 mmol/L (3.5-5.1); SODIUM 134 mmol/L (136-145); TCO2 34 mmol/L (25-35); TOTAL PROTEIN 4.7 g/dL (6.3-8.3)
--- NOTE | 2018-03-19 12:40 | EKG Report ---
Test Performed on : 03/19/2018 11:29:06 AM Test Reason : chest tightness Blood Pressure : / mmHG Vent. Rate : 084 BPM Atrial Rate : 084 BPM P-R Int : 132 ms QRS Dur : 072 ms QT Int : 370 ms P-R-T Axes : 046 -11 -38 degrees QTc Int : 437 ms Sinus rhythm. with premature atrial complexes. Anterior infarct (cited on or before 02-MAR-2017) Abnormal ECG When compared with ECG of 02-MAR-2017 19:12, premature atrial complexes. are now present Questionable change in initial forces of Septal leads Nonspecific T wave abnormality now evident in Inferior leads Nonspecific T wave abnormality, worse in Anterolateral leads Unconfirmed Result
[2018-03-19 12:48] LABS: BANDS 1 % (0-1); LYMPHS 6 % (21-51); MONO 9 % (1-9); SEGS 84 % (42-75)
[2018-03-19] MEDS ORDERED: ZOSYN 3.375 GM in NS 50 ML IV ONE (13:53)
--- NOTE | 2018-03-19 13:53 | PROVIDER DOCUMENTATION ---
This chart was entered by Ana Cristina Jon Scribe, acting as scribe for Jeanie Davis MD. HPI-Respiratory General - General Chief Complaint: Shortness of Breath Stated Complaint: SOB Time Seen by Provider: 03/19/18 11:41 Source: patient Allergies/Adverse Reactions: Patient Allergies Allergy/AdvReac Type Severity Reaction Status Date / Time aspirin Allergy Severe SWELLING Verified 03/05/18 08:48 ampicillin Allergy RASH Verified 03/05/18 08:48 chloramphenicol Allergy Unknown Verified 03/05/18 08:48 [From Chloromycetin] digoxin [From Lanoxin] Allergy ANAPHYLAXIS Verified 03/05/18 08:48 Penicillins Allergy ITCHING/katrin Verified 03/05/18 08:48 h streptomycin Allergy ANAPHYLAXIS Verified 03/05/18 08:48 midazolam HCl * [From Versed] AdvReac wild Verified 03/05/18 08:48 Home Medications: Home Medication List Medication Instructions Recorded Confirmed Last Taken Type Metformin [Glucophage] 500 mg PO BID 10/25/14 03/05/18 03/04/18 21:00 History PRAVAstatin [Pravachol] 40 mg PO HS 10/25/14 03/05/18 03/04/18 21:00 History Sotalol [Betapace] 80 mg PO HS 10/25/14 03/05/18 03/04/18 21:00 History Montelukast Sodium 10 mg PO DAILY 08/25/16 03/05/18 03/05/18 06:00 History Diltiazem HCl [Diltiazem ER] 180 mg PO QHS 03/02/17 03/05/18 03/04/18 21:00 History Omeprazole [Prilosec] 40 mg PO DAILY@0700 03/02/17 03/05/18 03/02/18 History Rivaroxaban [Xarelto] 20 mg PO DAILY 03/03/17 03/05/18 03/02/18 History Levothyroxine [Synthroid] 100 microgm PO DAILY@0700 #30 tab 03/06/17 03/05/18 06:00 Rx Ondansetron [Zofran Odt] 8 mg PO Q8H PRN #20 tab.rapdis 06/06/17 03/05/18 Unknown Rx Escitalopram Oxalate [Lexapro] 10 mg PO DAILY 03/05/18 03/05/18 03/05/18 06:00 History Fentanyl 25 Microgm/Hr Patch 1 each TD Q72H 03/05/18 03/05/18 03/04/18 21:00 History [Duragesic 25 Microgm/Hr Patch] Hydrocodone/Acetaminophen [[place] 1 each PO Q6-8H PRN PRN 03/05/18 03/05/1803/05 00:00 History 10-325 Tablet] Loratadine [Claritin] 10 mg PO DAILY 03/05/18 03/05/18 03/05/18 06:00 History - History of Present Illness-Resp Nature of Presenting Problem: Patient is a 78 year old female who presents to the ED via EMS with shortness of breath. Patient states shortness of breath has been worsening gradually. Patient states history of CHF and ovarian cancer. Patient does not report chest pain. Quality of Pain: reports: tightness Severity in ED: reports: mild Onset/Duration: reports: gradual Timing: reports: still present, getting worse Cough Quality/Degree: reports: no cough Current Respiratory Medication Therapy: Initiated see nurses note Modifying Factors: improves with: nothing Associated Symptoms: reports: shortness of breath Similar Symptoms Previously?: Yes Recently seen or treated by another doctor?: No Review of Systems - Adult - REVIEW OF SYSTEMS - ADULT Constitutional: reports: no symptoms reported Eyes: reports: no symptoms reported Ears, Nose, Mouth & Throat: reports: no symptoms reported Cardiovascular: reports: no symptoms reported Respiratory: reports: shortness of breath. denies: cough, wheezing Gastrointestinal: reports: no symptoms reported Genitourinary: reports: no symptoms reported Musculoskeletal: reports: no symptoms reported Integumentary: reports: no symptoms reported Neurological: reports: no symptoms reported Psychiatric: reports: no symptoms reported Endocrine: reports: no symptoms reported Hematologic/Lymphatic: reports: no symptoms reported Allergic/Immunologic: reports: no symptoms reported All Other Systems: Reviewed and Negative Past History - Adult - PAST MEDICAL HISTORY-ADULT Review of Records: reports: Nursing Assessment Review, Medications Reviewed, Social history reviewed & non-contributory. Major Childhood Illnesses: reports: denies history Cardiovascular: reports: arrhythmia, hyperlipidemia Respiratory: reports: denies history Gastrointestinal: reports: cholelithiasis, GERD, hemorrhoids Obstetrical/Gynecological: reports: denies history Genitourinary: reports: denies history Musculoskeletal: reports: neck/back injury Neurological: reports: denies history Psychiatric: reports: denies history Endocrine/Immune: reports: Diabetes, thyroid disorder Other Conditions: reports: denies history - PRIOR SURGERIES/PROCEDURES Surgical/Procedure History: reports: appendectomy, cholecystectomy, hysterectomy , tonsillectomy (mastectomy), other - IMMUNIZATION STATUS Childhood Immunizations: See Nurse Assessment Flu Vaccine: See Nurse Assessment - FAMILY HISTORY Family History: reviewed, not pertinent - SOCIAL HISTORY Smoking: denies Substance Use: denies Physical Exam-General - PHYSICAL EXAM-ADULT Initial Vital Signs Reviewed: Yes - CONSTITUTIONAL General Appearance: alert, no apparent distress, other (anasarca) - HEAD, EARS, NOSE, MOUTH & THROAT HENMT: normal ENT inspection - RESPIRATORY Respiratory: rales (bilateral), rhonchi (bilateral) - CARDIOVASCULAR Cardiovascular: normal peripheral pulses, regular rate, rhythm - GASTROINTESTINAL (ABDOMEN) Abdominal Exam: normal bowel sounds, non tender, soft - MUSCULOSKELETAL Extremity: non-tender, other (3 + pitting edema to bilateral lower extremities) - SKIN Integumentary: normal turgor, warm/dry - NEUROLOGIC Neurologic: grossly normal - PSYCHIATRIC Psych/Mental Status: normal mood/affect, oriented x 3 Progress - PLAN OF CARE/RESULTS Progress/Plan/Lab Results: Vital Signs - 8 hr 03/19/18 11:08 Temperature 98.5 F Pulse Rate 94 H Respiratory Rate 18 Blood Pressure 122/75 O2 Sat by Pulse Oximetry 97 Laboratory Results - last 24 hr 03/19/18 03/19/18 03/19/18 12:05 12:05 12:05 WBC 25.68 H RBC 3.65 L Hgb 10.8 L Hct 34.8 L MCV 95.3 MCH 29.6 MCHC 31.0 L RDW Std Deviation 17.9 H Plt Count 277 MPV 8.5 Immature Gran % (Auto) 1.0 H Neut % (Auto) 87.7 H Lymph % (Auto) 4.2 L [place] % (Auto) 7.0 Eos % (Auto) 0.0 Baso % (Auto) 0.1 Immature Gran # (Auto) 0.25 H Neut # (Auto) 22.52 H Lymph # (Auto) 1.07 L [place] # (Auto) 1.81 H Eos # (Auto) 0.01 Baso # (Auto) 0.02 Segmented Neutrophils 84 H Band Neutrophils 1 Lymphocytes 6 L Monocytes 9 D-Dimer, Quantitative Sodium Potassium Chloride Carbon Dioxide Anion Gap BUN Creatinine Estimated GFR/1.73 m2 BUN/Creatinine Ratio Glucose Calculated Osmolality Calcium Magnesium Total Bilirubin AST ALT Alkaline Phosphatase Creatine Kinase 18 L Troponin T < 0.010 Oab-O-Ytsasngoqzf Pept Total Protein Albumin Globulin Albumin/Globulin Ratio 03/19/18 03/19/18 03/19/18 12:05 12:05 12:05 WBC RBC Hgb Hct MCV MCH MCHC RDW Std Deviation Plt Count MPV Immature Gran % (Auto) Neut % (Auto) Lymph % (Auto) [place] % (Auto) Eos % (Auto) Baso % (Auto) Immature Gran # (Auto) Neut # (Auto) Lymph # (Auto) [place] # (Auto) Eos # (Auto) Baso # (Auto) Segmented Neutrophils Band Neutrophils Lymphocytes Monocytes D-Dimer, Quantitative 2.61 H Sodium 134 L Potassium 3.4 L Chloride 90 L Carbon Dioxide 34 Anion Gap 10 BUN 9 Creatinine 0.5 Estimated GFR/1.73 m2 > 60 BUN/Creatinine Ratio 18 Glucose 165 H Calculated Osmolality 271 Calcium 8.1 L Magnesium 1.5 Total Bilirubin 0.40 AST 14 ALT 6 L Alkaline Phosphatase 139 H Creatine Kinase Troponin T Njl-H-Otboqhfipfr Pept 784 H Total Protein 4.7 L Albumin 2.5 L Globulin 2.0 Albumin/Globulin Ratio 1.0 Orders Category Date Time Status Cardiac Monitoring DIRECTED Care 03/19/18 11:14 Active Nursing- Obtain EKG once Care 03/19/18 11:14 Active OK to use Port-A-Cath ORDERED Care 03/19/18 12:12 Active CHEST-PORTABLE [RAD] Stat Exams 03/19/18 11:16 Completed CTA [CT ANGIOGRM PULMONARY ARTERIES] [CT] Urgent Exams 03/19/18 13:23 Ordered 24HR URINE PROTEIN [URCHEM] Routine Lab 03/19/18 13:25 Uncollected CBC WITH DIFF [HEME] Stat Lab 03/19/18 12:05 Completed CK PROFILE [SP CHEM] Stat Lab 03/19/18 12:05 Completed COMPREHENSIVE METABOLIC PANEL [CHEM] Stat Lab 03/19/18 12:05 Completed D-DIMER [COAG] Stat Lab 03/19/18 12:05 Completed MAGNESIUM [CHEM] Stat Lab 03/19/18 12:05 Completed PRO B-NATRIURETIC PEPTIDE Stat Lab 03/19/18 12:05 Completed TROPONIN T Stat Lab 03/19/18 12:05 Completed Furosemide [Lasix] Med 03/19/18 11:54 Discontinued 80 mg IV NOW ONE EKG [EKG] Stat Ther 03/19/18 11:14 Draft Result Diagrams: 03/19/18 12:05 03/19/18 12:05 - EKG 1 Time of EKG reading by physician:: 11:29 EKG Read and Signed by:: Jeanie Davis EKG Interpretation (*Must complete 3 of following elements*): Abnormal Rate: 84 Rhythm: sinus rhythm with premature atrial complexes [place]: normal [place] Interval: normal ST Wave: normal Comments: anterior infarct, age undetermined - XRAY 1 XRAY Study: Chest Impression: See EMR Report (EXAM: CHEST-PORTABLE HISTORY: sob met ca TECHNIQUE: Chest single view COMPARISON: 03/05/2018 FINDINGS: Moderate sized left-sided pleural effusion remains. It is similar to the prior study. There is basilar atelectasis on the left and there may be underlying infiltrates. The right lung remains well expanded and clear. No change in the right-sided portacatheter. IMPRESSION: Stable chest. Electronically signed by Braydon Krishnan 03/19/2018 11:46 AM 03/19/18 1146 Interpreting Physician: Braydon Krishnan MD Dictated Date/Time: 03/19/18 1145 cc: Jeanie Davis MD;) - CONSULTS/PCP/HOSPITALIST Notification #1 *Consult/PCP/Hospitalist*: Dr. Atkins Time Discussed: 13:21 Reason/Comments: Dr. Davis consulted with Dr. Atkins about patient. Consult Disposition: Will see in ED, Admit Departure - Departure Date of Disposition Decision: 03/19/18 Time of Disposition Decision: 13:21 DIAGNOSIS: Anasarca, Dyspnea Disposition: ADMITTED INPATIENT 09 Certified Medical Emergency: Emergent Condition: Fair Referrals and Follow-Ups: None,PCP [Primary Care Provider] - - Critical Care Note This patient required my direct & personal management of CC.: No Attestation - Physician/ JA Attestation The physician spent face to face time with patient:: Yes Advanced Practice Provider documentation review:: Supervising physician onsite and consulted in the evaluation and care of this patient. The physician did have a face to face encounter with the patient. This chart was documented by the indicated scribe, (Ana Cristina Jon Scribe) and accurately reflects the services I performed and decisions made by me, Jeanie Davis MD, as attested by the provider's signature.
--- NOTE | 2018-03-19 14:17 | Diag Imaging Result Doc PS360 ---
EXAM: CT ANGIOGRM PULMONARY ARTERIES 03/19/2018 HISTORY: hypoxia TECHNIQUE: This exam was performed using automated exposure control, adjustment of mA or kV according to patient size, and/or use of iterative reconstruction technique. COMMENT: 3-D MIPS were performed. The current examination is compared with the previous study of 11/08/2016. There is a fairly large left pleural effusion and a smaller effusion on the right. Neither were present at the time the previous study. There are no filling defects present in the pulmonary arteries. The aorta is not distended and there is no evidence of dissection. There is some atherosclerotic calcification in the aorta. There is generalized subcutaneous edema. There is a mass which is only partially visible in the anterior left lateral abdomen. This appears to be complex with cystic and solid elements. It measures at least 14.4 cm. This was not visible at the time the previous examination. There may be left hydronephrosis which was also not present at the time the previous study. There is a lucent lesion in the posterior right hepatic lobe and the right adrenal gland is massively enlarged. This was not the case at the time the previous study. The appearance of the mediastinum has not changed significantly. There is compressive atelectasis in both lower lobes particularly the left lower lobe. There is a calcified granuloma in the left upper lobe which was also present previously. There are degenerative disc changes throughout the thoracic spine. The regional skeleton is stable in appearance. IMPRESSION: No evidence of pulmonary emboli. Bilateral pleural effusions. Anasarca. Enlargement of the right adrenal gland and large left abdominal pelvic mass. Electronically signed by Willy Escboar 03/19/2018 2:14 PM
[2018-03-19] MEDS: LEVAQUIN 500 MG/D5W 500 MG/100 ML IVPB IV SCH (15:22)
--- NOTE | 2018-03-19 16:06 | HISTORY AND PHYSICAL ---
CHIEF COMPLAINT: Shortness of breath. HISTORY OF PRESENTING ILLNESS: This is an 78-year-old female, who presents to [facility] ER after she states that she talked with her oncologist's office today due to her shortness of breath, and they told her to come in to be evaluated. She was apparently placed on some antibiotics last week for feeling shortness of breath and not feeling well from her cancer treatments for ovarian cancer. She was saturating 97% on room air. Her chest x-ray showed a stable chest. She did have an elevation in her D-dimer at 2.61. We did a pulmonary arteriogram that showed no evidence of pulmonary emboli. There was bilateral pleural effusions, anasarca, an enlargement of the right adrenal gland, and a large left abdominal pelvic mass so she is being admitted for further evaluation and treatment. PAST MEDICAL HISTORY: CHF, ovarian cancer, arrhythmia, hyperlipidemia, GERD, diabetes, and hypothyroidism. PAST SURGICAL HISTORY: Appendectomy, cholecystectomy, hysterectomy, tonsillectomy, and a mastectomy. FAMILY HISTORY: Reviewed and noncontributory. SOCIAL HISTORY: She currently lives with family. Denies any tobacco, alcohol or illicit drug use. ALLERGIES: To aspirin, ampicillin, chloramphenicol, digoxin, penicillins, streptomycin, and Versed. HOME MEDICATIONS: We will need to obtain a current list and restart as appropriate. I will place an order for Nursing to update and confirm home medications, and we will review them and restart as appropriate. DIAGNOSTIC DATA: White blood cell count of 25.68, hemoglobin 10.8, hematocrit 34.8, platelets 277,000. D-dimer of 2.61. Sodium 134, potassium 3.4, chloride 90, CO2 of 34, BUN 9, creatinine 0.5, glucose 165, alkaline phosphatase 139. Creatine kinase of 18, troponin less than 0.010. ProBNP of 784. Chest x-ray showed a stable chest. EKG showed sinus rhythm with premature atrial complexes at 84. Pulmonary arteriogram showed no evidence of pulmonary emboli, bilateral pleural effusions, anasarca, and enlargement of the right adrenal gland and large left abdominal pelvic mass. REVIEW OF SYSTEMS: She denied any fever, chills, blurred vision, dizziness, chest pain. She has had a nonproductive cough and shortness of breath. Denied any abdominal pain, constipation, diarrhea, burning, or hurting with urination. PHYSICAL EXAMINATION: VITAL SIGNS: On arrival, she had a temperature of 98.5 degrees, a pulse of 94, respirations 18, blood pressure 122/75, saturating 97% on room air. GENERAL: This is an 78-year-old female, who is lying in the bed and answers questions appropriately. HEMNT: Normocephalic and atraumatic. Normal ENT inspection. Oropharynx and nares are clear. EYES: Pupils are equal, round, and reactive to light and accommodation. Extraocular movements are intact. NECK: Normal inspection. Normal range of motion. LUNGS: With bilateral rales and rhonchi noted. HEART: Regular rate and rhythm. No murmurs, rubs, or gallops. ABDOMEN: Soft, nontender, nondistended. Bowel sounds are present x4 quadrants. MUSCULOSKELETAL: She has 3/5 strength to lower extremities, 4/5 to upper extremities. She is noted to have 3+ pitting edema to bilateral lower extremities with anasarca noted, generalized. NEUROLOGICAL: The cranial nerves 2 through 12 appear grossly intact. ASSESSMENT: 1. Anasarca. 2. Leukocytosis. 3. An elevated D-dimer. 4. Ovarian cancer, currently being treated by Dr. Olvera. PLAN: She will be admitted to the medical unit at [facility]. Placed on telemetry. O2 per protocol. Diabetic diet. We are going to check a 24-hour urine protein. We will check a urinalysis. Blood cultures x2 are pending. We will place on Levaquin 500 mg IV q.24 h. Zofran 4 mg IV q.4 h. p.r.messi Sandhu. We will update and confirm home medications and restart those as appropriate. Further orders after being seen by attending. Lasix 40 mg IV q.12 h. Dictated by RAMONITA Burdick for Derrek Atkins MD cc: RAMONITA Burdick MD Sammy Becdach, MD
[2018-03-19 21:23] LABS: URINE SOURCE CATH
[2018-03-19 21:45] LABS: BILIRUBIN URINE NEGATIVE (NEGATIVE); BLOOD URINE NEGATIVE (NEGATIVE); CLARITY CLEAR (CLEAR); COLOR YELLOW; GLUCOSE URINE NEGATIVE (NEGATIVE); KETONE URINE NEGATIVE (NEGATIVE); LEUKOCYTES URINE NEGATIVE (NEGATIVE); NITRITE URINE NEGATIVE (NEGATIVE); PROTEIN URINE NEGATIVE (NEGATIVE); SP GRAVITY URINE 1.005; UROBILINOGEN URINE NORMAL
[2018-03-19] MEDS: LASIX IV SCH (23:29)
[2018-03-20 06:38] LABS: BASO# 0.02 X1000 (0.0-0.2); BASO% 0.1 % (0.0-0.8); HEMATOCRIT 35.5 % (37.0-47.0); IMM GRAN# 0.18 X1000 (0.0-0.04); IMM GRAN% 0.7 % (0.0-0.5); LYMPH# 0.75 X1000 (1.2-3.4); LYMPH% 2.8 % (20.5-51.1); MCH 29.6 PG (27-31); MCV 95.4 FL (81-99); MONO# 1.98 X1000 (0.11-0.59); MONO% 7.5 % (1.7-9.3); MPV 9.6 FL (7.4-10.4); NEUT# 23.51 X1000 (1.4-6.5); NEUT% 88.9 % (42.2-75.2); PLT 254 X1000 (130-400); RBC 3.72 XMIL (4.2-5.4); RDW 18.1 % (11.5-14.5); WBC 26.44 X1000 (4.8-10.8)
[2018-03-20 06:47] LABS: ESTIMATED GFR > 60
[2018-03-20 06:57] LABS: AGAP 14; BUN 7 mg/dL (8-22); CHLORIDE 90 mmol/L (98-107); COSMO 272; CREATININE 0.6 mg/dL (0.5-0.9); GLUCOSE 139 mg/dL (70-104); POTASSIUM 3.6 mmol/L (3.5-5.1); SODIUM 136 mmol/L (136-145); TCO2 33 mmol/L (25-35)
[2018-03-20 07:43] LABS: LYMPHS 3 % (21-51); MONO 4 % (1-9); SEGS 93 % (42-75)
[2018-03-20] MEDS: LASIX IV SCH (11:41)
[2018-03-20] MEDS: LEVAQUIN 500 MG/D5W 500 MG/100 ML IVPB IV SCH (15:08)
[2018-03-20] MEDS ORDERED: NORCO-10 PO PRN (17:24)
[2018-03-20] MEDS ORDERED: DURAGESIC 25 MICROGM/HR PATCH TD SCH (17:30)
[2018-03-20] MEDS: DURAGESIC 12 MICROGM/HR PATCH TD SCH (18:13)
[2018-03-20] MEDS: DURAGESIC 25 MICROGM/HR PATCH TD SCH (18:13)
[2018-03-20] MEDS: CARDIZEM CD PO SCH (18:14)
[2018-03-20] MEDS: LEXAPRO PO SCH (18:14)
[2018-03-20] MEDS: GLUCOPHAGE PO SCH (18:14)
[2018-03-20] MEDS ORDERED: ALBUMIN 25% IV ONE (18:30)
[2018-03-20] MEDS ORDERED: LEVAQUIN 250 MG/D5W 250 MG/50 ML IVPB IV ONE (18:33)
--- NOTE | 2018-03-20 18:59 | PROGRESS NOTE ---
DATE: 03/20/2018 SUBJECTIVE: Patient has no focal complaints. OBJECTIVE: Blood pressure is 105/59, heart rate of 115, respiratory rate 20, temperature 98 degrees.Cardiovascular: Regular rate and rhythm. Pulmonary: Bilateral breath sounds clear to auscultation, diminished at the bases. No rales, no wheezing. GI: Was soft, nontender, nondistended. Bowel sounds are positive. She has 2+ pitting edema. LAB: White count is 26,000, hemoglobin and hematocrit 11, 35, platelets 254,000, basic is normal. PROBLEM LIST: 1. Anasarca. She continues to have issues with that is really unclear what the mechanism is. Some of her lower extremity edema may be related to mass. 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 Olvera. She had a pleural effusion drained about a couple weeks ago which looked pretty benign but she has had reaccumulation already and additionally she has had lower extremity edema, upper extremity edema so we are going to continue diuresis. I do think she needs an echocardiogram to reevaluate for cardiac dysfunction. Her echocardiogram in April was unremarkable. Will get lower extremity Dopplers, rule out DVT and we are evaluating for nephrotic syndrome at this point. 2. Ovarian cancer, metastatic. Will let Dr. Olvera know she is here and will go from there. 3. Left pleural effusion. If feasible we will attempt to do drainage tomorrow. 4. Disposition pending her clinical status. Her leukocytosis it is really unclear what is potentially seeing that her urine is clear, her blood cultures are negative, she does have a pleural effusion which would suggest a possible infection. Now she is allergic to penicillins and ampicillin so really do not have a lot a recourse there. I am going to bump up her Levaquin and we may need to consider the addition of Azactam for additional gram-negative coverage. Disposition is pending her clinical status. cc: Derrek Atkins MD
[2018-03-20] MEDS: BETAPACE PO SCH (21:12)
[2018-03-20] MEDS: GLUCOTROL XL PO SCH (21:13)
[2018-03-20] MEDS: HUMULIN R (PARKWAY) SUBQ SCH (21:13)
[2018-03-20] MEDS: PRAVACHOL PO SCH (21:13)
[2018-03-21] MEDS: LASIX IV SCH ×2 (00:13→11:19)
[2018-03-21 03:40] LABS: UR PROTEIN 5.8 mg/dL
[2018-03-21] MEDS: HUMULIN R (PARKWAY) SUBQ SCH ×4 (06:35→23:52)
[2018-03-21] MEDS: SYNTHROID PO SCH (06:52)
[2018-03-21 07:52] LABS: BASO# 0.02 X1000 (0.0-0.2); BASO% 0.1 % (0.0-0.8); EOS# 0.01 X1000 (0.0-0.7); HEMOGLOBIN 9.9 g/dL (12.0-16.0); IMM GRAN# 0.26 X1000 (0.0-0.04); LYMPH# 0.78 X1000 (1.2-3.4); MCH 28.8 PG (27-31); MCV 95.9 FL (81-99); MONO# 1.89 X1000 (0.11-0.59); MONO% 7.2 % (1.7-9.3); NEUT# 23.47 X1000 (1.4-6.5); NEUT% 88.7 % (42.2-75.2); PLT 272 X1000 (130-400); RBC 3.44 XMIL (4.2-5.4); WBC 26.43 X1000 (4.8-10.8)
[2018-03-21 07:55] LABS: HEMOGLOBIN A1C 5.5 % (4.8-6.0)
[2018-03-21 08:05] LABS: AGAP 13; BUN 6 mg/dL (8-22); CALCIUM 8.4 mg/dL (8.8-10.2); CHLORIDE 90 mmol/L (98-107); COSMO 272; CREATININE 0.6 mg/dL (0.5-0.9); ESTIMATED GFR > 60; GLUCOSE 117 mg/dL (70-104); POTASSIUM 2.7 mmol/L (3.5-5.1); SODIUM 137 mmol/L (136-145); TCO2 35 mmol/L (25-35)
[2018-03-21] MEDS: ALDACTONE PO SCH (08:12)
[2018-03-21] MEDS: LEXAPRO PO SCH (08:12)
[2018-03-21] MEDS: CARDIZEM CD PO SCH (08:12)
[2018-03-21] MEDS: COLACE PO SCH (08:12)
[2018-03-21] MEDS: GLUCOPHAGE PO SCH ×2 (08:12→17:37)
[2018-03-21] MEDS: CLARITIN PO SCH (08:12)
[2018-03-21] MEDS: SINGULAIR PO SCH (08:12)
[2018-03-21] MEDS: GLUCOTROL XL PO SCH ×2 (08:13→22:29)
[2018-03-21] MEDS: SYSTANE EYE DROPS BOTH EYES SCH (08:34)
[2018-03-21 09:34] LABS: ANISOCYTOSIS 3+; LYMPHS 2 % (21-51); MONO 10 % (1-9); SEGS 88 % (42-75)
[2018-03-21] MEDS ORDERED: KLOR-CON PO ONE (10:06)
--- NOTE | 2018-03-21 11:21 | Extremity Venous Study ---
EXAM: Venous U/S Bilateral Legs HISTORY: swelling TECHNIQUE: Diana scale, color Doppler, and duplex evaluation was performed. COMPARISON: None. FINDINGS: The deep veins of the bilateral lower extremities demonstrate appropriate compressibility and augmentation. No intraluminal thrombus is visualized. There is no evidence for DVT. The superficial veins appear patent. IMPRESSION: No evidence for deep venous thrombosis bilateral lower extremities for. Electronically signed by Becky Dlay 03/21/2018 11:18 AM
--- NOTE | 2018-03-21 14:44 | PROGRESS NOTE ---
DATE: 03/21/2018 SUBJECTIVE: The patient has no focal complaints. She had concerns about her thoracentesis and we discussed that we were going to progress with that because of reaccumulation of fluid. OBJECTIVE: Vital Signs: Blood pressure is 107/52, heart rate of 79, respiratory rate 18, temperature 98.4 degrees. Cardiovascular: Regular rate and rhythm. Pulmonary: Bilateral breath sounds clear to auscultation. GI: Soft, nontender, nondistended. Bowel sounds were positive. Extremity Examination: No clubbing or cyanosis. Lymphatic Examination: No peripheral edema. Neurological Examination: Nonfocal. She does still have nonpitting edema but it is improved. Laboratory Data: White count is 26, hemoglobin and hematocrit 10 and 33, platelets 272,000. Potassium 2.7, glucose is 207. PROBLEM LIST: 1. Anasarca. It is really unclear what her underlying mechanism is, unless it is multifactorial. I am still waiting on her echocardiogram. She does not have nephrotic syndrome. She does have a reaccumulation of left pleural effusion. We will continue diuretics and follow. Her Dopplers were negative for deep venous thrombosis and she has no pulmonary embolism. She has been off her Xarelto but I am going hold off that for a while and I will discuss with Dr. Olvera. 2. Metastatic ovarian cancer. She is still undergoing treatment. I think she had treatment about a week ago. 3. Left pleural effusion. We will pursue drainage today. I have discussed with Dr. Sosa since this is a recurrent, presumably malignant effusion. She may need a PleurX catheter, pleurodesis, and re-evaluate. 4. Leukocytosis. It is unclear where that is coming from. There is no clear source of infection. We may CT her abdomen next. She is on antibiotics until we can sort things out a little bit better and we will see how she does. DISPOSITION: Pending her clinical status. We will continue to follow. cc: Derrek Atkins MD
[2018-03-21] MEDS: AZACTAM 1 GM in NS 50 ML IV SCH ×2 (15:18→22:45)
[2018-03-21 15:24] LABS: AGAP 11; ALBUMIN 2.5 g/dL (3.5-5.0); ALKALINE PHOSPHATASE 121 U/L (32-104); BUN 7 mg/dL (8-22); CALCIUM 8.3 mg/dL (8.8-10.2); CHLORIDE 93 mmol/L (98-107); COSMO 270; CREATININE 0.6 mg/dL (0.5-0.9); ESTIMATED GFR > 60; GLUCOSE 131 mg/dL (70-104); GOT 17 U/L (10-30); GPT 7 U/L (10-36); POTASSIUM 3.5 mmol/L (3.5-5.1); SODIUM 135 mmol/L (136-145); TCO2 32 mmol/L (25-35); TOTAL PROTEIN 5.1 g/dL (6.3-8.3)
--- NOTE | 2018-03-21 17:25 | Diag Imaging Result Doc PS360 ---
CHEST-PORTABLE - 03/21/2018 INDICATION: thoracentesis COMPARISON: 03/19/2018 FINDINGS: There is a stable right chest port in good position. There has been significant decrease in the left basilar pleural effusion. No pneumothorax. The lungs are clear of infiltrate. Heart size is normal. IMPRESSION: No complication. Electronically signed by Abel Sahni 03/21/2018 5:22 PM
[2018-03-21 19:00] LABS: BODY FLUID SOURCE PLEURAL FLUID
[2018-03-21 19:02] LABS: SPECIMEN PLEURAL FLUID
[2018-03-21 19:21] LABS: PH BODY FLUID 8
[2018-03-21] MEDS: LEVAQUIN 750 MG/D5W 750 MG/150 ML IVPB IV SCH (22:28)
[2018-03-21] MEDS: PRAVACHOL PO SCH (22:30)
[2018-03-21] MEDS: BETAPACE PO SCH (22:30)
[2018-03-21 22:41] LABS: MONOS 48 %; POLYS 52 %; WBC BF 19 /cumm
[2018-03-21 23:16] LABS: LDH BODY FLUID 370 U/L
[2018-03-21 23:27] LABS: AMYLASE BODY FLUID 13 U/L; GLUCOSE BODY FLUID 141 mg/dL; TOTAL PROT BODY FLUID 2.3 g/dL
--- NOTE | 2018-03-22 00:52 | OPERATIVE NOTE ---
PROCEDURE DATE: 03/21/2018 INDICATION FOR PROCEDURE: Pleural effusion, cough, coryza. DESCRIPTION OF PROCEDURE: The patient was prepped in sterile fashion. She was anesthetized locally with lidocaine. Catheter was placed without difficulty, but she had an immediate return of very bloody fluid, but it was not sanguinous, but not outright blood. We collected about 800 mL, a little over 800, possibly around 850. The patient tolerated the procedure without difficulty. A sample sent off, and chest x-ray pending. I am going to hold anticoagulation right now since she had such a bloody effusion. I could not tell exactly how bloody it was, based on her one we did about 2 weeks ago, but we will continue to follow. cc: Derrek Atkins MD
[2018-03-22] MEDS: LASIX IV SCH ×2 (01:41→11:53)
[2018-03-22] MEDS: AZACTAM 1 GM in NS 50 ML IV SCH ×3 (05:53→22:31)
[2018-03-22] MEDS: SYNTHROID PO SCH (05:53)
--- NOTE | 2018-03-22 06:47 | GENERAL SURGERY CONSULTATION ---
DATE: 03/22/2018 REQUESTING PHYSICIAN: Derrek Atkins MD. REASON FOR CONSULTATION: Consult concerning left pleural effusion. HISTORY OF PRESENT ILLNESS: An 78-year-old female who presented initially with shortness of breath, who is being treated currently for ovarian cancer. I had actually seen her in the [facility] for a pressure ulcer on her bottom, but she started having issues with shortness of breath. She came in and was noted to have bilateral pleural effusions, anasarca, and given this, she was admitted. She had previously undergone a thoracentesis and drained a significant amount of fluid, but it has reaccumulated on the left side. She just had it drained yesterday in which they got a liter out. Given this and her cancer diagnosis, it is concerning that it might be malignant effusion. They asked me for an opinion on placement of a PleurX catheter. The patient is currently feeling better after having a thoracentesis. PAST MEDICAL HISTORY: Congestive heart failure, ovarian cancer, history of arrhythmia, hyperlipidemia, gastroesophageal reflux disease, diabetes, and hypothyroidism. PAST SURGICAL HISTORY: Appendectomy, cholecystectomy, hysterectomy, tonsillectomy, mastectomy and port placement. FAMILY HISTORY: Reviewed with patient, noncontributory. SOCIAL HISTORY: Currently lives with family. Denies alcohol, tobacco, or illicit drugs. ALLERGIES: Aspirin, ampicillin, digoxin, streptomycin, Versed, chlorothenacol. HOME MEDICATIONS: Reviewed. REVIEW OF SYSTEMS: A full 10 point review of systems obtained and negative except as specified in HPI. PHYSICAL EXAMINATION: Vital Signs: Patient is currently afebrile. Her vital signs are stable. General: No acute distress. Alert, interactive female looks stated age. HEENT : Normocephalic, atraumatic. Pupils equal, round, reactive to light. Mucous membranes moist. Oropharynx benign. Neck: Supple. Trachea midline. Cardiovascular: Regular rate and rhythm. Lungs: Grossly clear and no increased labored breathing. Abdomen: Soft, nontender, nondistended. Extremities: Swelling noted to bilateral lower extremities. Skin: No signs of jaundice. Vascular: All extremities perfused. LABORATORY: None this morning as of yet. IMAGING: Reviewed from yesterday. ASSESSMENT AND PLAN: An 78-year-old female with bilateral pleural effusions and metastatic ovarian cancer. 1. Pleural effusion. At this time, she had a left side drain, which was the more prominent side. It is presumably a malignant effusion, although I do not think that they have not seen any cytology. At this point, they are considering a PleurX catheter since she has had a recurrence of this fluid. At this time, since she does have any effusion, I would like to see her try to reaccumulate some of the fluid before placement of it, and we could see her back as an outpatient. We would have to hold her Xarelto. But at this time, her Xarelto is for a blood clot, and she has had an ultrasound that does not show any signs of deep venous thrombosis. So I think she might not even need to go back on her Xarelto, but Oncology has been asked for an opinion. 2. Metastatic ovarian cancer. At this time, defer to Oncology. 3. Pressure ulcers. At this time, try to keep pressure off him as best as possible. I appreciate the consult. cc: MD Derrek Mc MD MTDD
[2018-03-22] MEDS: HUMULIN R (PARKWAY) SUBQ SCH ×4 (07:11→22:18)
[2018-03-22 07:54] LABS: BASO# 0.02 X1000 (0.0-0.2)
[2018-03-22 07:55] LABS: BASO% 0.1 % (0.0-0.8); HEMATOCRIT 34.7 % (37.0-47.0); HEMOGLOBIN 10.6 g/dL (12.0-16.0); IMM GRAN# 0.37 X1000 (0.0-0.04); IMM GRAN% 1.2 % (0.0-0.5); LYMPH# 0.88 X1000 (1.2-3.4); LYMPH% 2.9 % (20.5-51.1); MCH 29.1 PG (27-31); MCHC 30.5 g/dL (33-37); MCV 95.3 FL (81-99); MONO# 2.29 X1000 (0.11-0.59); MONO% 7.6 % (1.7-9.3); MPV 9.1 FL (7.4-10.4); NEUT# 26.61 X1000 (1.4-6.5); NEUT% 88.2 % (42.2-75.2); PLT 244 X1000 (130-400); RBC 3.64 XMIL (4.2-5.4); RDW 17.9 % (11.5-14.5); WBC 30.17 X1000 (4.8-10.8)
[2018-03-22] MEDS: SYSTANE EYE DROPS BOTH EYES SCH (08:13)
[2018-03-22] MEDS: CARDIZEM CD PO SCH (08:14)
[2018-03-22] MEDS: LEXAPRO PO SCH (08:14)
[2018-03-22] MEDS: SINGULAIR PO SCH (08:14)
[2018-03-22] MEDS: CLARITIN PO SCH (08:14)
[2018-03-22] MEDS: ALDACTONE PO SCH (08:14)
[2018-03-22] MEDS: GLUCOPHAGE PO SCH ×2 (08:14→18:10)
[2018-03-22] MEDS: GLUCOTROL XL PO SCH ×2 (08:14→22:17)
[2018-03-22] MEDS: COLACE PO SCH (08:14)
[2018-03-22 08:15] LABS: ANISOCYTOSIS 1+; BANDS 1 % (0-1); LYMPHS 8 % (21-51); MONO 8 % (1-9); SEGS 83 % (42-75)
--- NOTE | 2018-03-22 13:30 | ECHO REPORT ---
ORDER DATE: 03/21/2018 INTERPRETING PHYSICIAN: Dr. Kolton Finn. ECHOCARDIOGRAPHIC MEASUREMENTS: 1. Interventricular septum 1.4 cm. 2. Left ventricular posterior wall 1.5 cm. 3. Diastolic diameter 3.8 cm. 4. Aorta 2.7 cm. 5. Left atrium 4.5 cm. SUMMARY OF THE 2-DIMENSIONAL IMAGIN. Technically suboptimal study. Very poor acoustic window. 2. Mitral valve was normal. Tricuspid valve was normal. There is left atrial enlargement. 3. Normal left ventricular cavity size. Concentric left ventricular hypertrophy. Estimated ejection fraction of 55% to 60%. 4. There is no aortic stenosis or regurgitation. Aortic valve leaflets are trileaflet. There is mild mitral regurgitation. [id number] tricuspid regurgitation. Peak velocity across the tricuspid valve was 3 m/sec. Pulmonary artery systolic pressure of 46 mmHg. There is no pericardial effusion or obvious intracardiac mass or thrombus seen. cc: MD Derrek Moulton MD
[2018-03-22] MEDS ORDERED: NS 50 ML IV SCH (15:30)
[2018-03-22] MEDS: ALBUMIN 25% IV SCH (15:36)
[2018-03-22] MEDS: BETAPACE PO SCH (21:57)
[2018-03-22] MEDS: ZOFRAN IV PRN (21:57)
[2018-03-22] MEDS: PRAVACHOL PO SCH (21:57)
[2018-03-22] MEDS: LEVAQUIN 750 MG/D5W 750 MG/150 ML IVPB IV SCH (22:03)
[2018-03-23] MEDS: LASIX IV SCH ×2 (00:33→11:39)
[2018-03-23] MEDS: ALBUMIN 25% IV SCH (03:30)
[2018-03-23 06:40] LABS: BASO# 0.03 X1000 (0.0-0.2); BASO% 0.1 % (0.0-0.8); HEMOGLOBIN 9.6 g/dL (12.0-16.0); IMM GRAN# 0.35 X1000 (0.0-0.04); LYMPH# 0.94 X1000 (1.2-3.4); LYMPH% 2.7 % (20.5-51.1); MCH 28.5 PG (27-31); MONO# 2.41 X1000 (0.11-0.59); MPV 8.9 FL (7.4-10.4); NEUT# 30.64 X1000 (1.4-6.5); NEUT% 89.2 % (42.2-75.2); PLT 247 X1000 (130-400); RBC 3.37 XMIL (4.2-5.4); RDW 17.7 % (11.5-14.5); WBC 34.37 X1000 (4.8-10.8)
[2018-03-23] MEDS: AZACTAM 1 GM in NS 50 ML IV SCH ×2 (06:42→18:29)
[2018-03-23] MEDS: SYNTHROID PO SCH (06:43)
[2018-03-23] MEDS: HUMULIN R (PARKWAY) SUBQ SCH ×4 (06:43→22:52)
[2018-03-23 07:01] LABS: AGAP 12; BUN 11 mg/dL (8-22); CALCIUM 8.4 mg/dL (8.8-10.2); CHLORIDE 90 mmol/L (98-107); COSMO 265; CREATININE 0.6 mg/dL (0.5-0.9); ESTIMATED GFR > 60; GLUCOSE 45 mg/dL (70-104); SODIUM 134 mmol/L (136-145); TCO2 32 mmol/L (25-35)
--- NOTE | 2018-03-23 07:15 | GENERAL SURGERY PROGRESS NOTE ---
DATE: 03/23/2018 SUBJECTIVE: The patient says she is doing okay. She says she is breathing okay. OBJECTIVE: Vital Signs: The patient is currently afebrile. Her vital signs stable. General: No acute distress. Resting comfortably. HEENT: Normocephalic, atraumatic. Pupils equal, round, reactive to light. Mucous membranes moist. Oropharynx benign. Neck supple. Trachea midline. Cardiovascular: Regular rate and rhythm. Lungs: No increased labored breathing. Abdomen is soft, nontender, nondistended. Extremities: Still with some swelling. Neurologic: Grossly intact. Skin: No signs of jaundice. Vascular: All extremities perfused. LABORATORY DATA: Laboratory reviewed from yesterday. She does have a significant leukocytosis of 30,000. ASSESSMENT AND PLAN: An 78-year-old female with likely malignant pleural effusion. 1. Pleural effusion. At this time, the patient had a recent thoracentesis. We will follow and see how the fluid reaccumulates. If it does recannulated, can place a PleurX catheter in; but, at this time, hold off until fluid reaccumulates. 2. Metastatic ovarian cancer. At this time, defer to Oncology. 3. Pressure ulcer. At this time, keep pressure off her sacrum as much as possible. 4. Leukocytosis. At this time, unsure of the etiology. Depending on when she got chemotherapy and may be white blood cell count stimulating medication. This may be appropriate; but, at this time, defer to Oncology and the hospitalist. cc: MD Derrek Mc MD
[2018-03-23 07:55] LABS: ANISOCYTOSIS 1+; BANDS 3 % (0-1); LYMPHS 4 % (21-51); MONO 4 % (1-9); SEGS 89 % (42-75)
[2018-03-23] MEDS: CLARITIN PO SCH (08:17)
[2018-03-23] MEDS: ALDACTONE PO SCH (08:17)
[2018-03-23] MEDS: GLUCOPHAGE PO SCH ×3 (08:17→18:10)
[2018-03-23] MEDS: SINGULAIR PO SCH (08:17)
[2018-03-23] MEDS: LEXAPRO PO SCH (08:17)
[2018-03-23] MEDS: SYSTANE EYE DROPS BOTH EYES SCH (08:17)
[2018-03-23] MEDS: CARDIZEM CD PO SCH (08:17)
[2018-03-23] MEDS: GLUCOTROL XL PO SCH ×3 (08:17→22:32)
--- NOTE | 2018-03-23 08:19 | Diag Imaging Result Doc PS360 ---
EXAM: CHEST-PORTABLE INDICATION: dyspnea TECHNIQUE: One view COMPARISON: 03/21/2018 FINDINGS: Right chest port is in stable position. There is a small left that has reaccumulated during the interval. No other new consolidation is identified. Cardiac silhouette is stable. IMPRESSION: Small left pleural effusion that has reaccumulated. Stable chest, otherwise. Electronically signed by Pankaj Francisco 03/23/2018 8:16 AM
[2018-03-23] MEDS ORDERED: VANCOMYCIN IV PER PHARMACY MISC SCH (09:45)
[2018-03-23] MEDS: KLOR-CON PO ONE ×2 (11:39→12:07)
[2018-03-23] MEDS ORDERED: VANCOMYCIN 1,750 MG in NS 250 ML IV ONE (12:00)
[2018-03-23] MEDS ORDERED: POTASSIUM CHLORIDE 40 MEQ/SWI 40 MEQ/100 ML IVPB IV ONE (12:36)
[2018-03-23] MEDS: DURAGESIC 12 MICROGM/HR PATCH TD SCH (18:07)
[2018-03-23] MEDS: DURAGESIC 25 MICROGM/HR PATCH TD SCH (18:08)
[2018-03-23] MEDS: LEVAQUIN 750 MG/D5W 750 MG/150 ML IVPB IV SCH (22:31)
[2018-03-23] MEDS: PRAVACHOL PO SCH (22:31)
[2018-03-23] MEDS: BETAPACE PO SCH (22:32)
[2018-03-24] MEDS: AZACTAM 1 GM in NS 50 ML IV SCH ×3 (00:24→15:29)
[2018-03-24] MEDS: LASIX IV SCH ×2 (00:25→12:26)
[2018-03-24] MEDS: ZOFRAN IV PRN (01:03)
[2018-03-24] MEDS: HUMULIN R (PARKWAY) SUBQ SCH ×4 (06:51→23:00)
[2018-03-24] MEDS: GLUCOTROL XL PO SCH ×2 (08:40→23:00)
[2018-03-24] MEDS: GLUCOPHAGE PO SCH ×2 (08:40→16:17)
[2018-03-24] MEDS: SYSTANE EYE DROPS BOTH EYES SCH (08:41)
[2018-03-24] MEDS: ALDACTONE PO SCH (08:41)
[2018-03-24] MEDS: LEXAPRO PO SCH (08:41)
[2018-03-24] MEDS: CLARITIN PO SCH (08:41)
[2018-03-24] MEDS: CARDIZEM CD PO SCH (08:41)
[2018-03-24] MEDS: SINGULAIR PO SCH (08:41)
[2018-03-24] MEDS: SYNTHROID PO SCH (08:51)
[2018-03-24] MEDS: VANCOMYCIN 1,300 MG in NS 250 ML IV SCH (12:26)
[2018-03-24 12:49] LABS: BASO# 0.03 X1000 (0.0-0.2); BASO% 0.1 % (0.0-0.8); EOS# 0.01 X1000 (0.0-0.7); HEMATOCRIT 36.6 % (37.0-47.0); HEMOGLOBIN 11.5 g/dL (12.0-16.0); IMM GRAN# 0.44 X1000 (0.0-0.04); IMM GRAN% 1.2 % (0.0-0.5); LYMPH# 0.84 X1000 (1.2-3.4); LYMPH% 2.4 % (20.5-51.1); MCH 29.2 PG (27-31); MCHC 31.4 g/dL (33-37); MCV 92.9 FL (81-99); MONO# 2.69 X1000 (0.11-0.59); MONO% 7.5 % (1.7-9.3); MPV 8.9 FL (7.4-10.4); NEUT# 31.66 X1000 (1.4-6.5); NEUT% 88.8 % (42.2-75.2); PLT 231 X1000 (130-400); RBC 3.94 XMIL (4.2-5.4); RDW 17.7 % (11.5-14.5); WBC 35.67 X1000 (4.8-10.8)
[2018-03-24 13:08] LABS: AGAP 9; BUN 10 mg/dL (8-22); CALCIUM 8.5 mg/dL (8.8-10.2); CHLORIDE 87 mmol/L (98-107); COSMO 258; CREATININE 0.5 mg/dL (0.5-0.9); ESTIMATED GFR > 60; GLUCOSE 128 mg/dL (70-104); POTASSIUM 3.8 mmol/L (3.5-5.1); SODIUM 128 mmol/L (136-145); TCO2 32 mmol/L (25-35)
[2018-03-24 13:39] LABS: BANDS 2 % (0-1); LYMPHS 6 % (21-51); MONO 3 % (1-9); SEGS 89 % (42-75)
[2018-03-24] MEDS: DUONEB (A & A) INH SCH ×2 (16:55→21:35)
[2018-03-24] MEDS: LEVAQUIN 750 MG/D5W 750 MG/150 ML IVPB IV SCH (21:45)
[2018-03-24] MEDS: AZACTAM 2 GM in NS 100 ML IV SCH (22:59)
[2018-03-24] MEDS: BETAPACE PO SCH (23:00)
[2018-03-24] MEDS: PRAVACHOL PO SCH (23:00)
--- NOTE | 2018-03-25 03:30 | GENERAL SURGERY PROGRESS NOTE ---
DATE: 03/24/2018 SUBJECTIVE: Intermittent shortness of breath and dyspnea that seems to go away spontaneously. She has diffuse anasarca. She is eating some. OBJECTIVE: Vital Signs: No fevers. No tachycardia. Blood pressure 111/58. General: She is frail-appearing. Cardiovascular: Normal rate. Pulmonary: No increased work of breathing. Equal chest rise. Abdomen: Soft. Some fullness. Peripheral Vascular: Diffuse edema. LABORATORY STUDIES: White count 35, hematocrit 36, creatinine 0.5, glucose 120s to 150s. Sodium 128. Reviewed her chest x-ray, it showed a left effusion. ASSESSMENT AND PLAN: An 78-year-old female with metastatic ovarian cancer. She has had a recurrent malignant effusion on the left that seems to be recurring, but unclear if she is completely asymptomatic from this, or she has some degree of pneumonia. I discussed PleurX catheter placement. We can do this tomorrow if she has worsening symptoms overnight. We discussed the pros and cons of this. They understand. I do think prior to any further drainage procedure, a PleurX would be indicated. We will leave this up to development of symptoms. Also, I do worry that she has some interstitial component to this, that despite drainage of fluid, she may still have some respiratory symptoms. We will monitor her closely. Aggressive pulmonary toilet and antibiotics. cc: MD Derrek Fu MD
[2018-03-25] MEDS: DUONEB (A & A) INH SCH ×3 (03:47→15:45)
--- NOTE | 2018-03-25 03:55 | PROGRESS NOTE ---
DATE: 03/24/2018 SUBJECTIVE: The patient has no major complaints. She feels like she is short of breath though at the base of her lungs. OBJECTIVE: Vital Signs: Blood pressure 111/58, heart rate 77, respiratory rate 20, temperature 97.4 degrees, 100% on 2 L. She has been afebrile. Cardiovascular: Regular rate and rhythm. Pulmonary: She has clearly some rhonchi and she has diminished breath sounds at both bases but more noticeably on the left where her effusion is presumably reaccumulating. GI: Was soft, nontender, nondistended. Bowel sounds were positive. Extremity Examination: No clubbing or cyanosis. Lymphatic Examination: No peripheral edema. Neurological Examination: Nonfocal. Laboratory Data: Her white count is still high at 35,000 with 2% bands and 89% segmented neutrophils. Hemoglobin and hematocrit are 11 and 36, platelets 231,000. Sodium has dropped unfortunately to 128. PROBLEM LIST: 1. Recurrent malignant pleural effusion. We are monitoring her but I anticipate she may need more definitive treatment such as pleurodesis or a PleurX catheter. Surgery is following. I appreciate their input. 2. Persistent leukocytosis, presumably due to pneumonia. She is on vancomycin, Levaquin, and Azactam. She still has persistent leukocytosis. She had received Neulasta so it is possible that it is related to that kind of process but it is really unclear. 3. Ovarian cancer with liver metastases, now pulmonary metastases. She is followed by Dr. Anderson. Chemotherapy and further treatments decided per him. 4. Atrial fibrillation. She is rate controlled on sotalol and seems to be overall stable. 5. Diabetes. Also controlled on her current medications. 6. Disposition. I anticipate transfer to [facility] in the next day or two per surgery for a PleurX catheter. I would recommend infectious disease consultation when that happens. cc: Derrek Atkins MD
[2018-03-25] MEDS: AZACTAM 2 GM in NS 100 ML IV SCH ×3 (04:24→22:54)
[2018-03-25] MEDS: HUMULIN R (PARKWAY) SUBQ SCH ×4 (06:23→21:19)
[2018-03-25] MEDS: SYNTHROID PO SCH (06:34)
[2018-03-25 07:23] LABS: AGAP 8; BUN 10 mg/dL (8-22); CALCIUM 7.8 mg/dL (8.8-10.2); CHLORIDE 92 mmol/L (98-107); COSMO 260; CREATININE 0.5 mg/dL (0.5-0.9); ESTIMATED GFR > 60; GLUCOSE 66 mg/dL (70-104); POTASSIUM 3.5 mmol/L (3.5-5.1); SODIUM 131 mmol/L (136-145); TCO2 31 mmol/L (25-35)
[2018-03-25 07:39] LABS: BASO# 0.03 X1000 (0.0-0.2); BASO% 0.1 % (0.0-0.8); EOS# 0.01 X1000 (0.0-0.7); HEMATOCRIT 31.3 % (37.0-47.0); HEMOGLOBIN 9.9 g/dL (12.0-16.0); IMM GRAN# 0.34 X1000 (0.0-0.04); IMM GRAN% 1.3 % (0.0-0.5); LYMPH# 0.68 X1000 (1.2-3.4); LYMPH% 2.6 % (20.5-51.1); MCH 29.2 PG (27-31); MCHC 31.6 g/dL (33-37); MCV 92.3 FL (81-99); MONO# 2.59 X1000 (0.11-0.59); MONO% 9.9 % (1.7-9.3); MPV 9.2 FL (7.4-10.4); NEUT# 22.63 X1000 (1.4-6.5); NEUT% 86.1 % (42.2-75.2); PLT 217 X1000 (130-400); RBC 3.39 XMIL (4.2-5.4); RDW 17.6 % (11.5-14.5); WBC 26.28 X1000 (4.8-10.8)
[2018-03-25 08:04] LABS: BANDS 4 % (0-1); LYMPHS 3 % (21-51); MONO 2 % (1-9); SEGS 91 % (42-75)
[2018-03-25 08:05] LABS: ANISOCYTOSIS OCCASIONAL; HYPOCHROM OCCASIONAL; POIKILOCYTOSIS OCCASIONAL; POLYCHROM OCCASIONAL
[2018-03-25 08:06] LABS: STOMATOCYTES OCCASIONAL; TARGET CELLS OCCASIONAL
[2018-03-25] MEDS: CLARITIN PO SCH (08:28)
[2018-03-25] MEDS: LEXAPRO PO SCH (08:28)
[2018-03-25] MEDS: SINGULAIR PO SCH (08:28)
[2018-03-25] MEDS: GLUCOTROL XL PO SCH ×3 (08:28→22:38)
[2018-03-25] MEDS: SYSTANE EYE DROPS BOTH EYES SCH (08:28)
[2018-03-25] MEDS: CARDIZEM CD PO SCH (08:28)
[2018-03-25] MEDS: GLUCOPHAGE PO SCH ×2 (08:28→17:20)
[2018-03-25] MEDS: ALDACTONE PO SCH (08:28)
[2018-03-25] MEDS ORDERED: LASIX IV SCH (09:00)
[2018-03-25] MEDS ORDERED: PRILOSEC PO SCH ×2 (10:00→21:00)
[2018-03-25] MEDS: VANCOMYCIN 1,300 MG in NS 250 ML IV SCH (12:36)
--- NOTE | 2018-03-25 14:53 | Diag Imaging Result Doc PS360 ---
EXAM: CHEST-PORTABLE 03/25/2018 HISTORY: pleural effusion TECHNIQUE: AP portable at 1431 COMMENT: There is a left pleural effusion. There is atelectasis versus pneumonia in the left lower lobe. Compared to 03/23/2018 this is not changed appreciably. IMPRESSION: Left pleural effusion and basilar atelectasis. Electronically signed by Willy Escobar 03/25/2018 2:50 PM
--- NOTE | 2018-03-25 15:10 | PROGRESS NOTE ---
DATE: 03/25/2018 SUBJECTIVE: The patient feels a little bit better. Breathing is a little bit better. In any case. OBJECTIVE: Blood pressure 100/50, heart rate of 88, respiratory 20, temperature 97.7 degrees.Cardiovascular: Regular rate and rhythm. Pulmonary: Bilateral breath sounds, she has diminished breath sounds at the left base. GI: Soft, nontender, nondistended. Bowel sounds are positive. LABORATORY DATA: Her white count is finally come down to 26,000 that is the best it has been in several days, hemoglobin and hematocrit is 9 and 31, platelets of 217,000. Sodium up to 131. PROBLEM LIST: 1. Recurrent pleural effusion which was malignant on the last assay the 1 from a couple weeks ago now is recurrent. I think she will need a PleurX catheter. Repeat chest x-ray today looks maybe a little bit more clear but she still has an effusion. Plan will be to transfer her to the [facility] for evaluation for PleurX. Dr. Sosa is following. I discussed the case briefly with Dr. Up. 2. Leukocytosis presumably due to pneumonia. She is on vancomycin, Levaquin and Azactam. White blood cell count is coming down. We will get ID opinion when she gets across town. 3. Ovarian cancer with liver metastases and now pulmonary metastases. She is followed by Dr. Ovlera, not Dr. Anderson. I am not sure why it is listed as Justin but is Dr. Olvera, he has been consulted. 4. Atrial fibrillation is rate controlled on sotalol. We are holding her anticoagulation anticipating procedures. 5. Diabetes appears to be well controlled. DISPOSITION: Pending her clinical status. She is very weak. Will work on trying to get her up and about. We will see how she does. cc: Derrek Atkins MD
[2018-03-25] MEDS ORDERED: GLUCOTROL XL PO SCH (21:00)
[2018-03-25] MEDS ORDERED: COLACE PO SCH (21:00)
[2018-03-25] MEDS: LEVAQUIN 750 MG/D5W 750 MG/150 ML IVPB IV SCH (21:17)
[2018-03-25] MEDS: BETAPACE PO SCH (21:18)
[2018-03-25] MEDS: PRAVACHOL PO SCH (22:56)
[2018-03-26] MEDS ORDERED: D50W SYRINGE ONE ×2 (03:51→17:10)
[2018-03-26] MEDS: AZACTAM 2 GM in NS 100 ML IV SCH ×3 (04:47→21:41)
[2018-03-26] MEDS: DUONEB (A & A) INH SCH ×5 (05:52→23:10)
[2018-03-26] MEDS: HUMULIN R SUBQ SCH ×4 (06:02→21:41)
[2018-03-26] MEDS: SYNTHROID PO SCH ×2 (06:06)
--- NOTE | 2018-03-26 06:19 | GENERAL SURGERY PROGRESS NOTE ---
DATE: 03/26/2018 SUBJECTIVE: Patient transferred over from [facility]. Currently not having much shortness of breath. Reviewed her chest x-rays. She does have a pleural effusion on the left, but it is essentially unchanged from the March 23 x-ray. OBJECTIVE: Vital Signs: The patient is currently afebrile. Her vital signs are stable. General Examination: No acute distress. HEENT: Normocephalic, atraumatic. Pupils equal, round, reactive to light. Mucous membranes moist. Oropharynx benign. Neck: Supple. Trachea midline. Cardiovascular: Regular rate and rhythm. Lungs: Coarse sounds noted bilaterally. Some crackles. No increased labored breathing. Abdomen: Soft, nontender, nondistended. Extremities: Moves all extremities. Neurologic: Grossly intact. Skin: No signs of jaundice. Vascular: All extremities perfused. Laboratory: None this morning as of yet. ASSESSMENT AND PLAN: An 78-year-old female with likely malignant pleural effusion. Pleural effusion. At this time, I reviewed her chest x-ray. She does have an accumulation of the fluid on the left side. I did discuss and it looks like Dr. Up discussed over the weekend placement of a PleurX catheter with the patient. Discussed with her the pros and cons of both, the risks, benefits, and alternatives of the procedure also. I told her that I could potentially do it tomorrow. At this moment, she wants to think about it and then will get back to me. We could potentially do it tomorrow afternoon if she does want to go. There is a possibility that this is more of an interstitial disease and draining the fluid may not have that much improvement. I did discuss this with the patient. She is contemplating her options. We will follow along with you. cc: MD Derrek Mc MD
[2018-03-26 08:24] LABS: BASO# 0.07 X1000 (0.0-0.2); BASO% 0.2 % (0.0-0.8); EOS# 0.01 X1000 (0.0-0.7); HEMATOCRIT 38.7 % (37.0-47.0); HEMOGLOBIN 12.1 g/dL (12.0-16.0); IMM GRAN# 0.55 X1000 (0.0-0.04); IMM GRAN% 1.5 % (0.0-0.5); LYMPH% 2.7 % (20.5-51.1); MCH 29.6 PG (27-31); MCHC 31.3 g/dL (33-37); MCV 94.6 FL (81-99); MONO# 2.85 X1000 (0.11-0.59); MONO% 7.6 % (1.7-9.3); MPV 9.1 FL (7.4-10.4); NEUT# 33.25 X1000 (1.4-6.5); PLT 182 X1000 (130-400); RBC 4.09 XMIL (4.2-5.4); WBC 37.73 X1000 (4.8-10.8)
--- NOTE | 2018-03-26 08:30 | Diag Imaging Result Doc PS360 ---
EXAM: CHEST-2 VIEWS HISTORY: effusion TECHNIQUE: Chest two views COMPARISON: 03/25/2018 FINDINGS: There is a moderate-sized left-sided pleural effusion similar to the prior exam. There is also a small right-sided pleural effusion there is atelectasis or infiltrates in the left lung base. These are similar to the prior study. No change in the right-sided portacatheter. Mild scoliosis. IMPRESSION: No interval improvement. Electronically signed by Braydon Krishnan 03/26/2018 8:27 AM
[2018-03-26 08:36] LABS: AGAP 17; BUN 12 mg/dL (8-22); CALCIUM 8.3 mg/dL (8.8-10.2); CHLORIDE 92 mmol/L (98-107); COSMO 260; CREATININE 0.5 mg/dL (0.5-0.9); ESTIMATED GFR > 60; GLUCOSE 82 mg/dL (70-104); SODIUM 130 mmol/L (136-145); TCO2 21 mmol/L (25-35)
[2018-03-26 08:49] LABS: LYMPHS 3 % (21-51); MONO 6 % (1-9); SEGS 91 % (42-75)
[2018-03-26 08:50] LABS: ANISOCYTOSIS OCCASIONAL
[2018-03-26] MEDS: ALDACTONE PO SCH (09:29)
[2018-03-26] MEDS: LASIX IV SCH (09:29)
[2018-03-26] MEDS: CARDIZEM CD PO SCH (09:29)
[2018-03-26] MEDS: CLARITIN PO SCH (09:30)
[2018-03-26] MEDS: SINGULAIR PO SCH (09:30)
[2018-03-26] MEDS: LEXAPRO PO SCH (09:35)
--- NOTE | 2018-03-26 10:50 | INFECTIOUS DISEASE CONSULT REP ---
DATE: 03/26/2018 CONCLUSION: I have been asked by Dr. Atkins to see the patient because of her persistent leukocytosis, the etiology of which I am uncertain. I have a feeling that the leukocytosis originates from some problem in the abdomen, however. The patient on exam, on the sacral part of her back there is some erythema there almost like a cellulitis, but I doubt that is the cause of the patient's leukocytosis. RECOMMENDATIONS: I have ordered a CAT scan of the abdomen and pelvis. I am going to hold vancomycin for a day or 2 in order to cut down on possible renal toxicity between the IV contrast given for the CAT scan and vancomycin. DISCUSSION: The patient in the past week has had swelling, dyspnea, and abdominal pain. She has not had a stool in 3-4 days. She is not coughing. She does not have dysuria. She is not having night sweats. Studies thus far show a CBC with a white count of 37,730, hemoglobin 12.1, and platelet count 182,000. Creatinine is 0.5. GFR is greater than 60. Blood cultures and pleural fluid culture are negative. A pulmonary angiogram showed no pulmonary emboli. Chest x-ray shows left greater than right pleural effusion and a left lower lobe infiltrate versus atelectasis. PAST MEDICAL HISTORY/REVIEW OF SYSTEMS: Eyes and ears: She does not have any problem seeing or hearing. Neck: No stiffness. Respiratory: No cough or shortness of breath. Cardiac: No chest pain or palpitations. GI: The patient has not had a stool in 3-4 days. She is not vomiting. Genitourinary: No dysuria or flank pain. Bones, joints, muscles : No swollen joint or muscle aches. Endocrine: The patient is diabetic and has hypothyroidism. Neurologic: The patient does not have seizures. She has not recently lost motor or sensory function. TENTER FEEDER HISTORY: She is a 4, para 4, AB 0. She has had a hysterectomy. She has metastatic ovarian cancer. PREVIOUS HOSPITALIZATIONS AND OPERATIONS: She has had placement of a Port-A- Cath on the right side, a hysterectomy, labor and deliveries, tonsillectomy, appendectomy, cholecystectomy, hemorrhoid surgery, and left mastectomy for breast cancer. MEDICAL DISEASES: Positive for metastatic ovarian cancer, breast cancer, and diabetes mellitus. The patient has hypothyroidism, hyperlipidemia, and gastroesophageal reflux disease. INFECTIOUS DISEASE HISTORY: The patient has had pneumonia 3 separate times. She has not had a urinary tract infection. FAMILY HISTORY: Positive for diabetes mellitus, hypertension, and cancer. SOCIAL HISTORY: The patient [facility]. She is a . She lives with her daughter. She has a dog as a pet. ALLERGIES: Her chart lists multiple drug allergies which include the following. Aspirin, ampicillin, chloramphenicol, digoxin, streptomycin, and Versed. HOME MEDICATIONS: Include the following. Diltiazem, docusate, Lexapro, fentanyl patch, furosemide, glipizide, hydrocodone, Synthroid, Claritin, Glucophage, montelukast , omeprazole, Zofran, Pravachol, glycol, Xarelto, Betapace, and Aldactone. PHYSICAL EXAMINATION: Vital Signs: Temperature is 97.3 degrees, pulse 73, respirations 16, blood pressure 121/61. The patient is 5 feet 6 inches tall, weighs 156 pounds. General: This is a chronically ill-appearing, elderly female. She is in no acute distress. Head, eyes, ears, nose, and throat: She can hear my spoken words and see near objects. She does not have any white patches on her tongue. Neck: No meningismus. Thorax: Patient has a Port-A- Cath on the right side. The Port-A-Cath site is not erythematous, swollen, or tender. Lungs: Clear to auscultation. Cardiovascular: Heart rate is regular. Abdomen: Soft but slightly tender in the mid part of the abdomen and the right lower quadrant. Neurologic: Patient is alert. She can move her extremities. There is no tremor. Her sensation is intact to touch. Her memory as regarding her medical history was reduced. Integument: No rash noted. Thank you for the consult. cc: MD Derrek Cottrell MD MTDD
[2018-03-26] MEDS ORDERED: VANCOMYCIN 1,300 MG in NS 250 ML IV SCH (12:00)
--- NOTE | 2018-03-26 14:07 | Diag Imaging Result Doc PS360 ---
CT ABD/PELVIS W/PO AND IV CON - 03/26/2018 INDICATION: abdominal pain, leukocytosis COMPARISON: Several prior exams FINDINGS: There is severe body wall edema particularly on the left side. There are moderate bilateral pleural effusions. There is significant left hemidiaphragm elevation. There is essentially complete collapse of the left lower lobe. The heart size is top normal. There is a huge left abdominal complicated fluid collection with internal abnormal hyperdensity. This measures 22.6 x 14.3 x 13.5 cm. There is a second indeterminate collection or mass in the portacaval space. This measures about 7.3 x 4.2 cm in the axial plane. There is a mass in the inferior posterior right lobe of the liver as well. No bowel obstruction or inflammation. There is moderate constipation. IMPRESSION: Metastatic cancer. Moderate constipation. Pleural effusions, ascites, body wall edema. This exam was performed using automated exposure control, adjustment of mA or kV according to patient size, and/or use of iterative reconstruction technique Electronically signed by Abel Sahni 03/26/2018 2:05 PM
[2018-03-26] MEDS ORDERED: LACTULOSE PO PRN (16:15)
[2018-03-26] MEDS: GLUCOPHAGE PO SCH ×2 (16:48→17:19)
[2018-03-26] MEDS: GLUCOTROL XL PO SCH (16:48)
[2018-03-26] MEDS: MIRALAX PO SCH (17:06)
[2018-03-26] MEDS: SYSTANE EYE DROPS BOTH EYES SCH (17:06)
[2018-03-26] MEDS: DURAGESIC 25 MICROGM/HR PATCH TD SCH (17:24)
[2018-03-26] MEDS: DURAGESIC 12 MICROGM/HR PATCH TD SCH (17:24)
[2018-03-26] MEDS ORDERED: LEVAQUIN 750 MG/D5W 750 MG/150 ML IVPB IV SCH (21:00)
[2018-03-26] MEDS ORDERED: COLACE PO SCH (21:00)
[2018-03-26] MEDS: PRAVACHOL PO SCH (21:41)
[2018-03-26] MEDS: PRILOSEC PO SCH (21:41)
[2018-03-26] MEDS: BETAPACE PO SCH (21:41)
[2018-03-27] MEDS: DUONEB (A & A) INH SCH ×4 (03:23→23:12)
--- NOTE | 2018-03-27 05:22 | GENERAL SURGERY PROGRESS NOTE ---
DATE: 03/27/2018 SUBJECTIVE: The patient seems to be doing okay. I discussed with her again placement of a PleurX catheter. She wants to proceed. OBJECTIVE: Vital Signs: The patient is currently afebrile. Her vital signs are stable. General: No acute distress. HEENT: Normocephalic and atraumatic. Pupils are equal, round and reactive to light. Mucous membranes are moist. Oropharynx is benign. Neck: Supple. Trachea midline. Cardiovascular: Regular rate and rhythm. Lungs: Some coarse sounds noted bilaterally. No increased labored breathing. Abdomen: Soft, nontender and nondistended. Extremities: Moves all extremities. Neurologic: Grossly intact. Skin: No signs of jaundice. Vascular: All extremities perfused. LABORATORY DATA: Reviewed from yesterday, white blood cell count is still elevated at 37, platelet count is 182,000. Remainder of labs reviewed. It should be noted that her sodium is 130. 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 Pleural effusion: At this time I discussed with her the risks, benefits and alternatives of the procedure. She does want to proceed with a left PleurX catheter, we will try to do it today. We will make her nothing per oral. Again there is a possibility that she still has some respiratory issues afterwards because there it might be some degree of an interstitial disease, but we will see how she does. She has reaccumulated relatively fast after her previous thoracentesis. cc: MD Derrek Mc MD
[2018-03-27] MEDS: D50W SYRINGE IV PRN ×2 (06:37→11:09)
[2018-03-27] MEDS: AZACTAM 2 GM in NS 100 ML IV SCH ×3 (06:37→20:02)
[2018-03-27] MEDS: HUMULIN R SUBQ SCH ×3 (06:38→18:13)
[2018-03-27] MEDS: SYNTHROID PO SCH (06:38)
--- NOTE | 2018-03-27 07:04 | Diag Imaging Result Doc PS360 ---
EXAM: CHEST-PORTABLE 03/27/2018 HISTORY: dyspnea TECHNIQUE: AP portable at 0552 COMMENT: There is opacification of the left lower lobe and the posterior basal portion of the right lower lobe. There is an apparent pleural fluid collection on the left. Compared to four 2018 there may be slightly less pleural fluid on the left. IMPRESSION: Left lower lobe atelectasis versus pneumonia plus minus pulmonary edema. Left pleural effusion. Electronically signed by Willy Escobar 03/27/2018 7:02 AM
[2018-03-27 08:20] LABS: BASO# 0.01 X1000 (0.0-0.2); EOS# 0.01 X1000 (0.0-0.7); HEMATOCRIT 34.4 % (37.0-47.0); HEMOGLOBIN 10.9 g/dL (12.0-16.0); IMM GRAN# 0.28 X1000 (0.0-0.04); LYMPH# 0.73 X1000 (1.2-3.4); LYMPH% 2.7 % (20.5-51.1); MCHC 31.7 g/dL (33-37); MCV 91.5 FL (81-99); MONO% 10.1 % (1.7-9.3); MPV 8.8 FL (7.4-10.4); NEUT# 23.08 X1000 (1.4-6.5); NEUT% 86.2 % (42.2-75.2); PLT 206 X1000 (130-400); RBC 3.76 XMIL (4.2-5.4); RDW 17.7 % (11.5-14.5); WBC 26.81 X1000 (4.8-10.8)
[2018-03-27 08:24] LABS: AGAP 11; ALB/GLOB RATIO 0.8; ALBUMIN 2.3 g/dL (3.5-5.0); ALKALINE PHOSPHATASE 145 U/L (32-104); BUN 11 mg/dL (8-22); CHLORIDE 89 mmol/L (98-107); COSMO 256; CREATININE 0.4 mg/dL (0.5-0.9); ESTIMATED GFR > 60; GLUCOSE 127 mg/dL (70-104); GOT 54 U/L (10-30); GPT 20 U/L (10-36); SODIUM 127 mmol/L (136-145); TCO2 27 mmol/L (25-35); TOTAL BILIRUBIN 0.38 mg/dL (0.20-1.00); TOTAL PROTEIN 5.2 g/dL (6.3-8.3)
[2018-03-27 08:43] LABS: BANDS 4 % (0-1); HYPOCHROM 1+; LYMPHS 1 % (21-51); MONO 5 % (1-9); SEGS 90 % (42-75)
[2018-03-27] MEDS: SYSTANE EYE DROPS BOTH EYES SCH (09:22)
[2018-03-27] MEDS: LASIX IV SCH (09:22)
[2018-03-27] MEDS: D5 NS 1,000 ML IV SCH (11:12)
[2018-03-27] MEDS: SINGULAIR PO SCH ×2 (11:14→14:11)
[2018-03-27] MEDS: MIRALAX PO SCH ×2 (11:15→14:09)
[2018-03-27] MEDS: CARDIZEM CD PO SCH ×2 (11:16→14:10)
[2018-03-27] MEDS: ALDACTONE PO SCH ×2 (11:16→14:10)
[2018-03-27] MEDS: LEXAPRO PO SCH ×2 (11:16→14:10)
[2018-03-27] MEDS: CLARITIN PO SCH ×2 (11:16→14:09)
--- NOTE | 2018-03-27 11:19 | PROGRESS NOTE ---
DATE: 03/27/2018 SUBJECTIVE: This patient seems to be stable. She is breathing a little bit better. She is not complaining of pain at this moment. She has been coughing, but the sputum is yellowish-white. The patient said a few days ago it was green. She has been having episodes of hyponatremia. Her sodium and chloride are low as well. I will put this patient on a low rate of D5NS, and I will monitor. I will continue with the furosemide anyway as well. OBJECTIVE: Vital Signs: Temperature 97.9, pulse 86, respiratory rate 16, blood pressure 113/59, oxygen saturation 97% on room air. HEENT: Head normocephalic. No trauma. PERRLA. Neck supple. No JVD. No masses. Central trachea. Chest: Decreased breath sounds at the bases mostly on the left side with some crepitus and crackles. Abdomen is soft. Mild discomfort to palpation which is generalized. Positive bowel sounds. Extremities 3+ lower extremity edema. No clubbing. No cyanosis. Neurologic: The patient is alert and oriented x3. No focal deficits. LABORATORY: WBC 26.8, hemoglobin 10.9, hematocrit 34, platelets 206,000. Sodium 137, potassium 4, chloride 89, bicarbonate 27. BUN 11, creatinine 0.4, glucose 127. Calcium 8. Albumin 2.3. ASSESSMENT AND PLAN: 1. Recurrent pleural effusion on the left side which apparently was malignant on the last assay. Surgery Department evaluated this patient, and they will place a PleurX catheter. Surgery on board. 2. Leukocytosis, probably due to pneumonia. She is on antibiotics. Infectious Disease Department on board. 3. Ovarian cancer with liver metastasis and now pulmonary metastasis apparently. She has been followed by Dr. Olvera. He has been consulted pending recommendations. 4. Atrial fibrillation, rate controlled. Continue with sotalol. We held the anticoagulation due to the procedure. 5. Diabetes. She has been having episodes of hypoglycemia. I have placed this patient on D5NS, low rate. cc: MD Derrek Bazan MD [facility]
--- NOTE | 2018-03-27 18:25 | INFECTIOUS DISEASE PROGRESS NO ---
DATE: 03/27/2018 PRESENT ILLNESS: Ms. Verde has a persistent leukocytosis. This may be related to a possible pneumonia, as seen on x-ray. She has metastatic cancer with a huge left abdominal, complicated fluid collection noted on CT yesterday, as well as additional mass and ascites. MEDICATIONS: Today is day 2 of aztreonam 2 g IV every 8 hours and day 1 and Levaquin 750 IV every 24 hours. Vancomycin was being administered and is currently on hold due to the IV contrast in her CT. PHYSICAL EXAMINATION: Vital Signs: Temperature is 98.1 degrees, pulse rate 87 , respiratory rate 20, blood pressure 100/63, O2 saturation 98% on room air. General: This is a chronically ill- appearing, elderly female. She is lying in the bed, currently in no acute distress. HEENT: Atraumatic, normocephalic. Oral mucous membranes are pink and moist. Conjunctivae are pink. Neck: Supple. Trachea is midline. Cardiovascular: Heart rate and rhythm are regular. Normal sinus rhythm on the monitor. Pedal and radial pulses are palpable bilaterally. There is 2 to 3+ pitting edema pretibially. Abdomen: Soft, distended, and mildly tender. Bowel sounds are active. Respiratory: Lung sounds have some rhonchi and wheezes in the upper lobes. Diminished in the bases. Neurologic: She is awake, alert, and oriented. Generalized weakness noted. LABORATORY AND X-RAY: Today her white count is 26.81, hemoglobin 10.9, platelet count 206,000. Creatinine is 0.4. Estimated GFR is greater than 60. AST is 54, ALT 20, alkaline phosphatase 145. Gram stain of her pleural fluid has shown no bacteria and the final culture showed no growth. Blood cultures have also shown no growth after 5 days. Chest x-ray today shows left lower lobe atelectasis versus pneumonia plus or minus pulmonary edema with a left pleural effusion. CT showed metastatic cancer with ascites, pleural effusions, and body wall edema. ASSESSMENT AND PLAN: Ms. Verde has a leukocytosis which decreased mildly today. It looks as though there is a possible pneumonia, as seen on chest x-ray today. We will discontinue her Levaquin and continue aztreonam. Because of her age, we will start daptomycin instead of reinstating vancomycin. She will get 500mg IV daptomycin daily, and I have also discontinued her pravastatin for now. I have talked to her about the chest tube, and she has decided not to have the PleurX catheter inserted for now. These plans have been discussed with and recommended by Dr. Soria. COMORBIDITIES: For Ms. Verde include metastatic ovarian cancer, diabetes mellitus, and gastroesophageal reflux disease. Dictated by RAMONITA Woo for Sp Soria MD This chart was documented by, RAMONITA Woo and accurately reflects the services performed, treatment plan and medical decisions as attested by the providers signature Sp Soria MD. cc: MD Derrek Cottrell MD [facility]
[2018-03-27] MEDS ORDERED: CUBICIN 500 MG in NS 100 ML IV SCH (18:30)
[2018-03-27] MEDS: DULCOLAX PR SCH (20:02)
[2018-03-27] MEDS: LACTULOSE PO SCH (20:02)
[2018-03-27] MEDS: BETAPACE PO SCH (20:02)
[2018-03-28] MEDS: HUMULIN R SUBQ SCH ×5 (00:32→20:03)
[2018-03-28] MEDS: NORCO-10 PO PRN ×2 (00:37→17:26)
[2018-03-28] MEDS: PRILOSEC PO SCH ×2 (00:42→21:37)
[2018-03-28] MEDS: DUONEB (A & A) INH SCH ×4 (03:31→21:00)
[2018-03-28] MEDS: AZACTAM 2 GM in NS 100 ML IV SCH ×3 (05:18→21:37)
--- NOTE | 2018-03-28 06:17 | GENERAL SURGERY PROGRESS NOTE ---
DATE: 03/28/2018 The patient had a further discussion with Dr. Olvera. At this time, given her overall condition, she wants to hold off on the PleurX catheter. Given this, I will follow peripherally. Patient is in no acute respiratory distress at this moment. If the patient changes her mind, I will be more than happy or one of my partners can place a PleurX catheter in her, or any further intervention but in the meantime, I will just follow peripherally. cc: MD Derrek Mc MD
[2018-03-28] MEDS: SYNTHROID PO SCH (06:34)
[2018-03-28 07:57] LABS: HEMATOCRIT 33.9 % (37.0-47.0); HEMOGLOBIN 10.9 g/dL (12.0-16.0); MCH 29.3 PG (27-31); MCHC 32.2 g/dL (33-37); MCV 91.1 FL (81-99); MPV 9.1 FL (7.4-10.4); RBC 3.72 XMIL (4.2-5.4); RDW 18.1 % (11.5-14.5); WBC 24.64 X1000 (4.8-10.8)
[2018-03-28 08:14] LABS: AGAP 10; ALBUMIN 2.5 g/dL (3.5-5.0); ALKALINE PHOSPHATASE 176 U/L (32-104); BUN 10 mg/dL (8-22); CALCIUM 8.3 mg/dL (8.8-10.2); CHLORIDE 92 mmol/L (98-107); COSMO 258; CREATININE 0.5 mg/dL (0.5-0.9); ESTIMATED GFR > 60; GLUCOSE 105 mg/dL (70-104); GOT 58 U/L (10-30); GPT 30 U/L (10-36); POTASSIUM 3.8 mmol/L (3.5-5.1); SODIUM 129 mmol/L (136-145); TCO2 27 mmol/L (25-35); TOTAL BILIRUBIN 0.67 mg/dL (0.20-1.00)
[2018-03-28] MEDS: SINGULAIR PO SCH (09:06)
[2018-03-28] MEDS: SYSTANE EYE DROPS BOTH EYES SCH (09:07)
[2018-03-28] MEDS: CARDIZEM CD PO SCH (09:07)
[2018-03-28] MEDS: MIRALAX PO SCH (09:07)
[2018-03-28] MEDS: LASIX IV SCH (09:07)
[2018-03-28] MEDS: LEXAPRO PO SCH (09:07)
[2018-03-28] MEDS: LACTULOSE PO SCH ×2 (09:07→21:38)
[2018-03-28] MEDS: ALDACTONE PO SCH (09:07)
[2018-03-28] MEDS: CLARITIN PO SCH (09:07)
[2018-03-28] MEDS: ZOFRAN IV PRN ×3 (11:30→22:53)
[2018-03-28] MEDS: D5 NS 1,000 ML IV SCH (14:28)
--- NOTE | 2018-03-28 15:39 | PROGRESS NOTE ---
DATE: 03/28/2018 SUBJECTIVE: This patient is not feeling well today. She is having some cough and apparently she has been nauseated, 1 episode of vomiting. She was scheduled to get a PleurX catheter yesterday, but then she refused the treatment her WBC is still elevated at 24, decreased from 20/6. Infectious Disease Department on board as well as Hematology/Oncology Department. OBJECTIVE: Vital Signs: Temperature 98 degrees, pulse 83, respiratory rate 20, blood pressure 118/55, oxygen saturation 98% on room air. HEENT: Head normocephalic. No trauma. PERRLA. Neck: Supple. No JVD. No masses. Central trachea. Chest: Decreased breath sounds mostly at the bases, with some crepitus and crackles mostly on the left side. Abdomen: Soft. Mild discomfort to palpation, which is generalized. Positive bowel sounds. Extremities: 2+ to 3+ lower extremity edema. No clubbing. No cyanosis. Neurological: The patient is alert and oriented x3. No focal deficits. LABORATORY DATA: WBC 24.6, hemoglobin 10.9, hematocrit 33.9, platelets 222,000. Sodium 129, potassium 3.8, chloride 92, bicarbonate 27, BUN 10, creatinine 0.5, glucose 105, calcium 8.3, AST 58, ALT 30, alkaline phosphatase 176, albumin 2.5. ASSESSMENT AND PLAN: 1. Recurrent pleural effusion on the left side, which apparently was malignant on the last assay. Surgery Department evaluated this patient. They were about to place a PleurX catheter yesterday, but then the patient refused. Hematology/Oncology Department on board. 2. Leukocytosis with pneumonia. She is on antibiotics. Infectious Disease Department on board. Will follow their recommendations. 3. Ovarian cancer with liver metastasis and now apparently pulmonary metastasis. She has been followed by Dr. Olvera. We will follow their recommendations. 4. Atrial fibrillation, rate controlled. Continue with sotalol. Since this patient is not going for a thoracic catheter, I will restart her Xarelto again. 5. Diabetes. This is better. Now, she is on a diet and she is not having any episodes of hypoglycemia. I will stop the D5 normal saline. 6. Hyponatremia. This is getting a little bit better. Continue with the same management. cc: MD Derrek Bazan MD
[2018-03-28] MEDS ORDERED: VANCOMYCIN IV PER PHARMACY MISC SCH (17:30)
[2018-03-28] MEDS: VANCOMYCIN 1,400 MG in NS 250 ML IV SCH (19:59)
[2018-03-28] MEDS: BETAPACE PO SCH (21:38)
[2018-03-28] MEDS: DULCOLAX PR SCH (21:40)
[2018-03-29] MEDS: NORCO-10 PO PRN ×3 (00:04→12:18)
--- NOTE | 2018-03-29 00:51 | INFECTIOUS DISEASE PROGRESS NO ---
DATE: 03/28/2018 PRESENT ILLNESS: The patient has persistent leukocytosis. However, it is coming down gradually now. She does have pneumonia. She also has metastatic ovarian cancer, and a huge left abdominal mass. MEDICATIONS: The patient is on aztreonam. She was on Levaquin, but I stopped that. She was on vancomycin also. I stopped it while she was having a CT scan, and then I have started it back tonight. PHYSICAL EXAMINATION: Vital Signs: Temperature is 98 degrees, pulse 83, respirations 20, blood pressure 118/55. General: This is a chronically ill-appearing elderly female. She is in no acute distress, however. Head, Eyes, Ears, Nose, and Throat: She can hear my spoken words and see near objects. She does not have any white patches on her tongue. Neck: No meningismus. Thorax: The patient has an increased AP diameter of the chest. Cardiovascular: Heart rate is regular. Lungs: The lungs are clear to auscultation. Abdomen: Distended and soft. It is mildly tender. Neurologic: The patient is awake. She can move her extremities. There is no tremor. LAB AND X-RAY: CBC today shows a white count of 24,640, hemoglobin 10.9, and platelet count 222,000. Creatinine 0.5. GFR is greater than 60. The alkaline phosphatase is 176. There is no radiographic study that was done today. ASSESSMENT AND PLAN: The patient has leukocytosis, which is mildly decreasing. I think it is possible that she has a pneumonia, and I am uncertain if she does have some sort of infection in that large left-sided mass in the patient's abdomen. In any event, the white count is coming down, so I plan to continue with vancomycin and aztreonam. COMORBIDITIES: Metastatic ovarian cancer, diabetes mellitus, gastroesophageal reflux disease. cc: MD Derrek Cottrell MD
[2018-03-29] MEDS: DUONEB (A & A) INH SCH ×4 (03:55→21:35)
[2018-03-29] MEDS: AZACTAM 2 GM in NS 100 ML IV SCH ×3 (04:30→21:58)
[2018-03-29] MEDS: ZOFRAN IV PRN ×2 (04:36→12:36)
[2018-03-29] MEDS: SYNTHROID PO SCH (06:36)
[2018-03-29] MEDS: HUMULIN R SUBQ SCH ×4 (06:43→21:59)
--- NOTE | 2018-03-29 08:16 | Diag Imaging Result Doc PS360 ---
EXAM: CHEST-PORTABLE 03/29/2018 HISTORY: dyspnea TECHNIQUE: AP portable at 0629 COMMENT: There is pleural fluid on the left. There is hazy opacity in both lower lung jimenez consistent with pulmonary edema. There may be atelectasis or pneumonia in the retrocardiac region of the left lower lobe. Compared to 03/27/2018 there appears to be more pleural fluid on the left. IMPRESSION: Worsened left pleural effusion. Pulmonary edema plus minus pneumonia. Electronically signed by Willy Escobar 03/29/2018 8:14 AM
[2018-03-29] MEDS: PHENERGAN IV PRN ×2 (08:17→12:18)
[2018-03-29] MEDS: SODIUM CHLORIDE 0.9% INJ PRN ×2 (08:18→12:22)
[2018-03-29] MEDS: LACTULOSE PO SCH ×2 (08:22→21:58)
[2018-03-29] MEDS: MIRALAX PO SCH (08:22)
[2018-03-29] MEDS: ALDACTONE PO SCH (08:23)
[2018-03-29] MEDS: SINGULAIR PO SCH (08:23)
[2018-03-29] MEDS: CLARITIN PO SCH (08:23)
[2018-03-29] MEDS: LASIX IV SCH (08:23)
[2018-03-29] MEDS: CARDIZEM CD PO SCH (08:23)
[2018-03-29] MEDS: XARELTO PO SCH (08:23)
[2018-03-29] MEDS: LEXAPRO PO SCH (08:23)
[2018-03-29] MEDS: SYSTANE EYE DROPS BOTH EYES SCH (08:29)
[2018-03-29 09:58] LABS: BASO# 0.04 X1000 (0.0-0.2); BASO% 0.1 % (0.0-0.8); HEMATOCRIT 37.7 % (37.0-47.0); HEMOGLOBIN 12.2 g/dL (12.0-16.0); IMM GRAN# 0.26 X1000 (0.0-0.04); IMM GRAN% 0.9 % (0.0-0.5); LYMPH# 0.92 X1000 (1.2-3.4); LYMPH% 3.2 % (20.5-51.1); MCH 29.3 PG (27-31); MCHC 32.4 g/dL (33-37); MCV 90.6 FL (81-99); MONO# 2.24 X1000 (0.11-0.59); MONO% 7.7 % (1.7-9.3); MPV 8.8 FL (7.4-10.4); NEUT# 25.73 X1000 (1.4-6.5); NEUT% 88.1 % (42.2-75.2); PLT 237 X1000 (130-400); RBC 4.16 XMIL (4.2-5.4); RDW 18.3 % (11.5-14.5); WBC 29.19 X1000 (4.8-10.8)
[2018-03-29 10:12] LABS: LYMPHS 8 % (21-51); MONO 2 % (1-9); SEGS 90 % (42-75)
[2018-03-29 10:19] LABS: AGAP 13; BUN 13 mg/dL (8-22); CALCIUM 8.6 mg/dL (8.8-10.2); CHLORIDE 92 mmol/L (98-107); COSMO 260; CREATININE 0.6 mg/dL (0.5-0.9); ESTIMATED GFR > 60; GLUCOSE 189 mg/dL (70-104); POTASSIUM 4.4 mmol/L (3.5-5.1); SODIUM 127 mmol/L (136-145); TCO2 22 mmol/L (25-35)
[2018-03-29] MEDS: D5 NS 1,000 ML IV SCH (12:17)
--- NOTE | 2018-03-29 13:20 | PROGRESS NOTE ---
DATE: 03/29/2018 SUBJECTIVE: This patient is feeling worse today. She is having nausea and vomiting. I placed this patient on Phenergan back, but she does not like the sensation that this medication can cause, so I put her back on Zofran. She has an ovarian cancer with metastasis, and as per the patient, once she gets better, she will get more chemotherapy. It looks like she has a pneumonia. Her white blood cells are elevated at 29.1. That compared with yesterday is higher. She still hyponatremic. Kidney function is stable. OBJECTIVE: Vital Signs: Temperature 97.8 degrees, pulse 96, respiratory rate 17, blood pressure 120/66, oxygen saturation 97% on room air. HEENT: Head normocephalic. No trauma. PERRLA. Neck: Supple. No JVD. No masses. Central trachea. Chest: Decreased breath sounds at the bases with crepitus and crackles bilaterally, mostly on the left side. Abdomen: Soft. The abdomen is tense, but I do not see any signs of infection. Generalized painful to palpation. Positive bowel sounds. Extremities: There is 2+ to 3+ lower extremity edema. No clubbing. No cyanosis. Neurological: The patient is alert and oriented x3. No focal deficits. DIAGNOSTIC STUDIES: WBC 29.1, hemoglobin 12.2, hematocrit 37.7, platelets 237,000. Sodium 127, potassium 4.4, chloride 92, bicarbonate 22, BUN 13, creatinine 0.6, glucose 189, calcium 8.6. ASSESSMENT AND PLAN: 1. Intractable nausea and vomiting. Continue with gentle IV fluids and nausea medication. I had placed this patient on Phenergan, but she does not like that medication, as per the patient, so I will put her back on Zofran. 2. Recurrent pleural effusion on the left side, which apparently was malignant on the last assay. Surgery Department evaluated this patient. They were about to place a PleurX catheter 2 days ago, but the patient refused. Hematology/Oncology on board. 3. Leukocytosis and pneumonia. Continue with antibiotics. Infectious Disease Department on board. The leukocyte count is getting worse. 4. Ovarian cancer with liver metastases and now apparently pulmonary metastasis. She has been followed by Dr. Olvera. We will follow their recommendations. 5. Atrial fibrillation, rate controlled. Continue with sotalol. I have restarted this patient on Xarelto again. 6. Diabetes. Continue with the same management. 7. Hyponatremia. This is about the same compared with a couple days ago. This patient is getting Lasix. For now, we will continue to monitor. cc: MD Derrek Bazan MD
[2018-03-29] MEDS: DURAGESIC 12 MICROGM/HR PATCH TD SCH (18:59)
[2018-03-29] MEDS: DURAGESIC 25 MICROGM/HR PATCH TD SCH (18:59)
[2018-03-29] MEDS: PRILOSEC PO SCH (21:58)
[2018-03-29] MEDS: DULCOLAX PR SCH (21:59)
[2018-03-29] MEDS: BETAPACE PO SCH (21:59)
--- NOTE | 2018-03-30 00:14 | INFECTIOUS DISEASE PROGRESS NO ---
DATE: 03/29/2018 PRESENT ILLNESS: The patient continues to have leukocytosis. I think she has pneumonia. She also has metastatic ovarian cancer and a huge left abdominal mass. MEDICATIONS: The patient is on aztreonam, and I restarted the vancomycin. PHYSICAL EXAMINATION: Vital Signs: Temperature is 97.2 degrees, pulse 91, respirations 15, blood pressure 125/70. General: This is a chronically ill-appearing, elderly female. She is in no acute distress, fortunately. The patient is vomiting. Head, eyes, ears, nose, and throat: She can hear my spoken words and see near objects. She does not have any white patches on her tongue. Neck: No stiffness. Thorax: She has increased AP diameter of the chest. Cardiovascular: Heart rate is regular. Lungs: Clear to auscultation. Abdomen: Distended, and it is mildly tender to soft palpation. Neurologic: The patient is awake. She can move her extremities. There is no tremor. LABORATORY AND X-RAY: Chest x-ray shows worsening of the left pleural effusion, and it does show continued bilateral opacities. Laboratory data: The CBC, unfortunately, the white count has increased back to 29,190, hemoglobin 12.2, and platelet count 237,000. The creatinine is 0.6. GFR is greater than 60. ASSESSMENT AND PLAN: The patient has, I think, pneumonia, and possibly the big mass in her abdomen is infected as well. My plan will be to continue with aztreonam and vancomycin. COMORBIDITIES: Metastatic ovarian cancer, diabetes mellitus, and gastroesophageal reflux disease. cc: MD Derrek Cottrell MD
[2018-03-30] MEDS: D5 NS 1,000 ML IV SCH (01:55)
[2018-03-30] MEDS: VANCOMYCIN 1,400 MG in NS 250 ML IV SCH (01:56)
[2018-03-30] MEDS: DUONEB (A & A) INH SCH ×3 (03:45→16:45)
[2018-03-30] MEDS: AZACTAM 2 GM in NS 100 ML IV SCH ×3 (05:18→22:31)
[2018-03-30] MEDS: ZOFRAN IV PRN ×5 (05:24→22:27)
[2018-03-30] MEDS: HUMULIN R SUBQ SCH ×4 (05:59→22:34)
[2018-03-30] MEDS: SYNTHROID PO SCH (06:21)
[2018-03-30 07:47] LABS: INR 1.07; PROTIME 14.8 Seconds (11.0-16.0)
[2018-03-30 07:48] LABS: PTT 39.1 Seconds (22.3-41.8)
[2018-03-30 07:59] LABS: AGAP 11; ALBUMIN 2.5 g/dL (3.5-5.0); ALKALINE PHOSPHATASE 120 U/L (32-104); BUN 18 mg/dL (8-22); CALCIUM 8.7 mg/dL (8.8-10.2); CHLORIDE 90 mmol/L (98-107); COSMO 261; CREATININE 0.8 mg/dL (0.5-0.9); ESTIMATED GFR > 60; GLUCOSE 171 mg/dL (70-104); GOT 11 U/L (10-30); GPT 12 U/L (10-36); POTASSIUM 4.1 mmol/L (3.5-5.1); SODIUM 127 mmol/L (136-145); TCO2 26 mmol/L (25-35); TOTAL BILIRUBIN 0.52 mg/dL (0.20-1.00)
[2018-03-30 08:34] LABS: BASO# 0.02 X1000 (0.0-0.2); BASO% 0.1 % (0.0-0.8); EOS# 0.01 X1000 (0.0-0.7); HEMATOCRIT 36.5 % (37.0-47.0); HEMOGLOBIN 11.7 g/dL (12.0-16.0); IMM GRAN# 0.24 X1000 (0.0-0.04); IMM GRAN% 0.9 % (0.0-0.5); LYMPH# 0.66 X1000 (1.2-3.4); LYMPH% 2.5 % (20.5-51.1); MCH 28.6 PG (27-31); MCHC 32.1 g/dL (33-37); MCV 89.2 FL (81-99); MONO# 2.54 X1000 (0.11-0.59); MONO% 9.7 % (1.7-9.3); MPV 8.7 FL (7.4-10.4); NEUT# 22.74 X1000 (1.4-6.5); NEUT% 86.8 % (42.2-75.2); PLT 291 X1000 (130-400); RBC 4.09 XMIL (4.2-5.4); WBC 26.21 X1000 (4.8-10.8)
[2018-03-30 08:50] LABS: BANDS 4 % (0-1); HYPOCHROM 1+; MONO 8 % (1-9); SEGS 84 % (42-75)
[2018-03-30] MEDS: LASIX IV SCH (09:54)
[2018-03-30] MEDS: ALDACTONE PO SCH (09:54)
[2018-03-30] MEDS: SINGULAIR PO SCH (09:55)
[2018-03-30] MEDS: LEXAPRO PO SCH (09:55)
[2018-03-30] MEDS: MIRALAX PO SCH (09:55)
[2018-03-30] MEDS: CARDIZEM CD PO SCH (09:55)
[2018-03-30] MEDS: CLARITIN PO SCH (09:55)
[2018-03-30] MEDS: LACTULOSE PO SCH (09:55)
[2018-03-30] MEDS: SYSTANE EYE DROPS BOTH EYES SCH (09:55)
[2018-03-30] MEDS: XARELTO PO SCH (09:56)
[2018-03-30] MEDS: MORPHINE IV PRN ×4 (10:00→22:27)
--- NOTE | 2018-03-30 11:07 | Diag Imaging Result Doc PS360 ---
EXAM: US ABD PARACENTESIS W S/I 03/30/2018 HISTORY: Diagnostic and theraeutic TECHNIQUE: Ultrasound-guided paracentesis. COMMENT: The risks and benefits of the procedure including the possibility of bleeding, infection, or reaction to lidocaine as well as the possibility of puncture of hollow viscus was discussed with the patient and she agreed to the procedure. There are very small pockets of fluid seen in the right abdomen. One such pocket to just below the tip of the liver was selected for puncture. The puncture was performed under ultrasonographic guidance with a 20-gauge needle and approximately 50 mL of blood-tinged slightly turbid fluid was aspirated. There are no immediate complications. IMPRESSION: Successful ultrasound-guided paracentesis. Electronically signed by Willy Escobar 03/30/2018 11:04 AM
--- NOTE | 2018-03-30 11:09 | Diag Imaging Result Doc PS360 ---
EXAM: ABDOMEN FLAT/UPRIGHT 03/30/2018 HISTORY: pain TECHNIQUE: Flat and upright abdomen COMMENT: There is retained contrast medium in the ascending colon. The ascending colon is somewhat distended with gas as well. There is formed stool mixed with contrast in the descending colon and rectum. Some small bowel loops are seen in the midabdomen which are slightly distended. The stomach is not distended. There is no evidence of free air. Compared to 10/25/2014 the small bowel and colonic dilatation described above are much worse. IMPRESSION: Constipation and ileus. Electronically signed by Willy Escobar 03/30/2018 11:06 AM
[2018-03-30] MEDS ORDERED: D5 NS 1,000 ML IV SCH (13:15)
[2018-03-30] MEDS ORDERED: NS 1,000 ML IV SCH (13:15)
--- NOTE | 2018-03-30 13:28 | PROGRESS NOTE ---
DATE: 03/30/2018 SUBJECTIVE: At this moment, this patient is lying comfortably in bed. She is completely alert and oriented x3. She has not had a bowel movement in a couple of days. She was vomiting yesterday and today in the morning I think she had an episode of vomiting as well, but at this moment she feels better. She is not tolerating p.o. too much. WBC decreased from 29 to 26. I did an x-ray that showed constipation and possible ileus. I talked to the patient about using an enema, but she refused that. She wants to take milk of magnesium tonight because as per the patient, that will work. I talked to her about the possibility of not getting better from that bowel problem and she seems to understand, but she wants to try 1st. OBJECTIVE: Vital Signs: Temperature 97.6 degrees, pulse 100, respiratory rate 16, blood pressure 104/54, oxygen saturation 97% on 2 L of nasal cannula. HEENT: Head normocephalic. No trauma. PERRLA. Neck: Supple. No JVD. No masses. Central trachea. Chest: Decreased breath sounds at the bases with crepitus at the bases as well, mostly on the left side. Abdomen: Soft. The abdomen is tense. I do not see any signs of infection of the skin. Generalized tenderness to palpation. Decreased bowel sounds. Extremities: 2+ lower extremity edema. No clubbing. No cyanosis. Neurological: The patient is alert and oriented x3. No focal deficits. LABORATORY: WBC 26.2, hemoglobin 11.7, hematocrit 36.5, platelets 291,000. Sodium 127, potassium 4.1, chloride 90, bicarbonate 26, BUN 18, creatinine 0.8, glucose 171, calcium 8.7, albumin 2.5. ASSESSMENT AND PLAN: 1. Intractable nausea and vomiting likely due to constipation/ileus. This patient has ovarian cancer with likely peritoneal carcinomatosis. There is a risk of having obstruction. No bowel movement for the past 2 days. As per the patient, she had a good bowel movement 2 days ago. The abdomen looks distended and decreased bowel sounds. I talked to her about the possibility of not getting better. I already consulted Palliative Care. 2. Recurrent pleural effusion on the left side, which apparently was malignant on the last assay. Surgery Department evaluated this patient. They were about to place a PleurX catheter 3 days ago, but the patient refused. Hematology/Oncology on board. 3. Leukocytosis and pneumonia. Continue with the same antibiotics. Infectious Disease Department on board. 4. Ovarian cancer with liver metastasis and likely peritoneal carcinomatosis. She is being followed by Dr. Olvera. We will follow recommendations. 5. Atrial fibrillation, rate controlled. Continue with sotalol. 6. Diabetes. Continue with same management. 7. Hyponatremia. I will put this patient on normal saline. Compared with the previous days, no changes. cc: Demarcus Garza MD
[2018-03-30 18:45] LABS: BODY FLUID SOURCE PERITONEAL FLUID; WBC BF 207 /cumm
[2018-03-30 19:12] LABS: MONOS 43 %; POLYS 57 %
[2018-03-30 19:27] LABS: ALBUMIN BODY FLUID 1.5 g/dL; LDH BODY FLUID 401 U/L
[2018-03-30] MEDS: DULCOLAX PR SCH (22:34)
--- NOTE | 2018-03-30 22:46 | INFECTIOUS DISEASE PROGRESS NO ---
DATE: 03/30/2018 PRESENT ILLNESS: Ms. Verde has a leukocytosis with pneumonia. She has metastatic ovarian cancer, and there is a huge left upper abdominal mass. This morning, she had an ultrasound-guided paracentesis with 50 mL of fluid removed. There is also an oral candidiasis. MEDICATIONS: She is receiving aztreonam 2 g IV every 8 hours and IV vancomycin per pharmacy dosing. PHYSICAL EXAMINATION: Vital Signs: Temperature is 97.6 degrees, pulse rate 100 , respiratory rate 16, blood pressure 104/54, O2 saturations 97% on 2 L nasal cannula. General: This is a chronically ill-appearing, elderly female. She is sitting up in the bed, in no acute distress. HEENT: Atraumatic, normocephalic. Oral mucous membranes are erythematous with some mild white patches. Conjunctivae are pink. Neck: Supple. Trachea is midline. Cardiovascular: Heart rate and rhythm are regular. Normal normal sinus rhythm/sinus tachycardia on the monitor. Radial and pedal pulses are palpable bilaterally. There is 1 to 2+ pretibial edema noted. Abdomen: Soft, distended, and mildly tender. There is a Band-Aid noted to the right side that is clean and dry. Bowel sounds are hypoactive but audible. Respiratory: Lung sounds have some rhonchi noted in the upper lobes, diminished in the bases. Neurologic: She is awake, alert , and oriented. Generalized weakness is noted. LABORATORY AND X-RAY: Today, her white count is 26.21, hemoglobin 11.7, platelet count 291,000. Creatinine is 0.8. Estimated GFR is greater than 60. AST is 11, ALT 12, alkaline phosphatase 120. Abdominal x-ray today showed constipation and ileus. ASSESSMENT AND PLAN: Ms. Verde is being treated for pneumonia. We will continue her on aztreonam and vancomycin at this time. She also has metastatic ovarian cancer with abdominal masses and has undergone paracentesis this morning. As far as we can tell, no fluid has been sent for culture or analysis. She does have complaints of burning to her tongue with some erythema and white patches noted. I will go ahead and order some Mycelex trey. I will also reorder her Pravastatin 40mg p.o. at HS, since she has been taken off daptomycin. These plans have been discussed with and recommended by Dr. Soria. COMORBIDITIES: for Ms. Verde include metastatic ovarian cancer, diabetes mellitus, and gastroesophageal reflux disease. Dictated by RAMONITA Woo for Sp Soria MD This chart was documented by, RAMONITA Woo and accurately reflects the services performed, treatment plan and medical decisions as attested by the providers signature Sp Soria MD. cc: Sp Soria MD [facility] [place]
[2018-03-31] MEDS: MYCELEX TROCHE PO SCH ×5 (01:02→21:25)
[2018-03-31] MEDS: PRILOSEC PO SCH (01:03)
[2018-03-31] MEDS: LACTULOSE PO SCH ×3 (01:03→21:25)
[2018-03-31] MEDS: MILK OF MAGNESIA PO SCH ×2 (01:03→21:25)
[2018-03-31] MEDS: BETAPACE PO SCH ×2 (01:03→21:25)
[2018-03-31] MEDS: PRAVACHOL PO SCH ×2 (01:04→21:25)
[2018-03-31] MEDS: MORPHINE IV PRN ×4 (01:36→21:15)
[2018-03-31] MEDS: ZOFRAN IV PRN ×4 (01:36→21:15)
[2018-03-31] MEDS: DUONEB (A & A) INH SCH ×5 (02:05→22:32)
[2018-03-31] MEDS: AZACTAM 2 GM in NS 100 ML IV SCH ×3 (05:21→21:15)
[2018-03-31] MEDS: SYNTHROID PO SCH (05:37)
[2018-03-31] MEDS: HUMULIN R SUBQ SCH ×4 (06:12→21:21)
[2018-03-31 07:55] LABS: BASO# 0.01 X1000 (0.0-0.2); HEMATOCRIT 33.4 % (37.0-47.0); HEMOGLOBIN 10.8 g/dL (12.0-16.0); IMM GRAN# 0.19 X1000 (0.0-0.04); IMM GRAN% 0.8 % (0.0-0.5); LYMPH# 0.73 X1000 (1.2-3.4); LYMPH% 3.3 % (20.5-51.1); MCH 28.6 PG (27-31); MCHC 32.3 g/dL (33-37); MCV 88.6 FL (81-99); MONO# 1.77 X1000 (0.11-0.59); MONO% 7.9 % (1.7-9.3); MPV 8.8 FL (7.4-10.4); NEUT# 19.69 X1000 (1.4-6.5); PLT 292 X1000 (130-400); RBC 3.77 XMIL (4.2-5.4); RDW 18.1 % (11.5-14.5); WBC 22.39 X1000 (4.8-10.8)
[2018-03-31] MEDS: VANCOMYCIN 1,400 MG in NS 250 ML IV SCH (08:08)
[2018-03-31] MEDS: ALDACTONE PO SCH (08:09)
[2018-03-31] MEDS: LEXAPRO PO SCH (08:10)
[2018-03-31] MEDS: MIRALAX PO SCH ×2 (08:10→21:23)
[2018-03-31] MEDS: SINGULAIR PO SCH (08:10)
[2018-03-31] MEDS: CARDIZEM CD PO SCH (08:10)
[2018-03-31] MEDS: CLARITIN PO SCH (08:10)
[2018-03-31] MEDS: LASIX IV SCH (08:10)
[2018-03-31] MEDS: XARELTO PO SCH (08:10)
[2018-03-31] MEDS: SYSTANE EYE DROPS BOTH EYES SCH (08:10)
[2018-03-31 08:17] LABS: AGAP 12; ALB/GLOB RATIO 0.7; ALBUMIN 2.1 g/dL (3.5-5.0); ALKALINE PHOSPHATASE 100 U/L (32-104); BUN 25 mg/dL (8-22); CALCIUM 8.7 mg/dL (8.8-10.2); CHLORIDE 92 mmol/L (98-107); COSMO 264; CREATININE 0.8 mg/dL (0.5-0.9); ESTIMATED GFR > 60; GLUCOSE 181 mg/dL (70-104); GOT 9 U/L (10-30); GPT 8 U/L (10-36); MAGNESIUM 1.7 mg/dL (1.5-2.7); PHOSPHORUS 3.9 mg/dL (2.7-4.5); POTASSIUM 4.2 mmol/L (3.5-5.1); SODIUM 127 mmol/L (136-145); TCO2 23 mmol/L (25-35); TOTAL BILIRUBIN 0.46 mg/dL (0.20-1.00)
[2018-03-31 09:03] LABS: MONO 2 % (1-9); SEGS 98 % (42-75)
--- NOTE | 2018-03-31 10:18 | Diag Imaging Result Doc PS360 ---
CHEST-PORTABLE - 03/31/2018 INDICATION: dyspnea COMPARISON: 03/29/2018 FINDINGS: Stable right chest port in good position. Stable small to moderate left basilar pleural effusion. No significant infiltrates. Heart size remains normal. IMPRESSION: No change from prior. Electronically signed by Abel Sahni 03/31/2018 10:16 AM
--- NOTE | 2018-03-31 11:42 | Diag Imaging Result Doc PS360 ---
ABDOMEN FLAT/UPRIGHT - 03/31/2018 INDICATION: sbo COMPARISON: 03/30/2018 FINDINGS: There is stable contrast throughout the colon. There is constipation of the proximal colon and sigmoid colon. This is unchanged from prior. There are some stable abnormally gas-distended loops in the lower abdomen/pelvis. These measure over 3 cm. No evidence of free air. IMPRESSION: No change from prior. Constipation. Mildly distended small bowel loops concerning for partial obstruction. Electronically signed by Abel Sahni 03/31/2018 11:40 AM
[2018-03-31] MEDS: CLINIMIX E 4.25%-5% SOLUTION 1,000 ML IV SCH (13:20)
[2018-03-31] MEDS ORDERED: SODIUM CHLORIDE 0.9% INJ SCH (15:30)
[2018-03-31] MEDS: PROTONIX IV SCH (16:00)
--- NOTE | 2018-03-31 19:43 | PROGRESS NOTE ---
DATE: 03/31/2018 SUBJECTIVE: The patient is lying comfortably in bed. She is completely alert and oriented x3. No bowel movement so far and as per the patient she is not passing gas, sodium level about the same compared with yesterday. WBC decreased from 22 to 26. X-ray showed constipation versus ileus versus possible partial bowel obstruction, we have been trying to lactulose, MiraLAX and milk of magnesia and today she received an enema, I have requested an evaluation by Gastroenterology Department as well. Her prognosis is extremely poor due to her ovarian cancer with metastasis. OBJECTIVE: Vital Signs: Temperature 98.2 degrees, pulse 88, respiratory rate 14, blood pressure 111/57, oxygen saturation 100% on 2 L of nasal cannula. HEENT: Head normocephalic. No trauma. PERRLA. Neck: Supple. No JVD. No masses. Central trachea. Chest: Decreased breath sounds at the bases with crepitus at the bases as well. Abdomen: Soft, distended, decreased bowel sounds. No signs of peritoneal irritation. Extremities: 2+ lower extremity edema. No clubbing, no cyanosis. Neurologic: The patient is alert and oriented x3. No focal deficits. LABORATORY: WBC 22.3, hemoglobin 10.8, hematocrit 33.4, platelets 292,000, sodium 127, potassium 4.2, chloride 92, BUN 25, creatinine 0.8, glucose 181, calcium 8.7, albumin 2.1. ASSESSMENT AND PLAN: 1. Intractable nausea and vomiting likely secondary to constipation/ileus/ partial obstruction. This patient has ovarian cancer with likely peritoneal carcinomatosis. There is a high risk of having obstruction, no bowel movement for the past couple days, we will try today with a soap suds enema and I will ask gastroenterology department to evaluate this patient. 2. Recurrent pleural effusion on the left side which apparently was malignant on the last assay, Surgery Department evaluated this patient. They were about to place a PleurX catheter 4 days ago but the patient refused, Hematology/Oncology on board. 3. Leukocytosis and pneumonia. Continue with antibiotics. WBC decreased a little bit compared with yesterday. 4. Ovarian cancer with liver metastasis and likely peritoneal carcinomatosis, she has been followed by Dr. Olvera, will follow recommendations. 5. Atrial fibrillation, rate controlled, continue with sotalol. 6. Diabetes, continue with same management. 7. Hyponatremia, continue with same treatment, has been stable for the past few days. 8. Nutritional status. I will add a little bit of Clinimix to her medications since this patient is having nausea and vomiting. cc: Demarcus Garza MD MTDD
[2018-03-31] MEDS: DULCOLAX PR SCH (21:25)
[2018-03-31] MEDS: NORCO-10 PO PRN (23:18)
[2018-03-31] MEDS: SODIUM CHLORIDE 0.9% INJ PRN (23:56)
[2018-03-31] MEDS: PHENERGAN IV PRN (23:56)
[2018-04-01] MEDS: MYCELEX TROCHE PO SCH ×4 (02:10→21:56)
[2018-04-01] MEDS: ZOFRAN IV PRN ×3 (02:27→12:45)
[2018-04-01] MEDS: MORPHINE IV PRN ×3 (02:27→14:07)
[2018-04-01] MEDS: PROTONIX IV SCH ×2 (02:38→16:38)
[2018-04-01] MEDS: DUONEB (A & A) INH SCH ×5 (03:13→21:52)
[2018-04-01] MEDS ORDERED: MORPHINE IV ONE (04:26)
[2018-04-01] MEDS: AZACTAM 2 GM in NS 100 ML IV SCH ×3 (04:45→21:56)
[2018-04-01] MEDS: SODIUM CHLORIDE 0.9% INJ PRN (04:54)
[2018-04-01] MEDS: PHENERGAN IV PRN (04:54)
--- NOTE | 2018-04-01 05:41 | CONSULTATION ---
DATE OF CONSULTATION: 03/31/2018 REQUESTING PHYSICIAN: Dr. Pinzon. REASON FOR CONSULTATION: Ileus versus constipation and known history of ovarian cancer. HISTORY OF PRESENT ILLNESS: Ms. Verde is an 78-year-old female who was admitted on 03/19/2018 for shortness of breath. She had imaging done which showed no evidence of pulmonary embolism but the imaging did show bilateral pleural effusions, anasarca, enlargement of right adrenal gland, and a large left abdominopelvic mass. She has a history of ovarian cancer diagnosed 2 years ago with metastasis to the liver and peritoneal carcinomatosis so she is being followed by Dr. Olvera. During the hospital stay, she was noted to have abdominal distention and chronic worsening constipation. Her imaging in the form of abdominal x-ray had shown constipation in the proximal colon and sigmoid colon. She has been given laxatives with partial relief. Gastroenterology is consulted for further management. PAST MEDICAL HISTORY: 1. Congestive heart failure. 2. Metastatic ovarian cancer with question of peritoneal carcinomatosis. 3. Cardiac arrhythmias. 4. Hyperlipidemia. 5. GERD. 6. Diabetes. 7. Hypothyroidism. 8. Constipation. PAST SURGICAL HISTORY: Appendectomy, cholecystectomy, hysterectomy, tonsillectomy, and mastectomy. FAMILY HISTORY: Noncontributory. SOCIAL HISTORY: She lives with family. Denies history of alcohol, tobacco, or illicit drugs. ALLERGIES: Aspirin, ampicillin, chloramphenicol, digoxin, penicillin, streptomycin, and Versed. REVIEW OF SYSTEMS: Denies any fevers, rigors, or chills. Does have some shortness of breath and pleural effusions. Does complain of abdominal discomfort, abdominal distention , nausea, and bilious vomiting intermittently. She does complain of constipation. She just received an enema which caused her to have a small bowel movement. She has a history of arthritis. MEDICATIONS IN THE HOSPITAL: Include milk of magnesia 30 mL p.o. at bedtime, pravastatin, clotrimazole, DuoNeb inhaler, aztreonam, Dulcolax, Clinimix 30 mL per hour, D50 syringe as needed, Cardizem CD 120 mg every day, Lexapro 10 mg every day, fentanyl patch every 72 hours with total of 37 mg per hour patch, Lasix, [place] 10, insulin Humulin R, lactulose as needed and lactulose 30 mg p.o. b.i.d., Synthroid 100 mcg p.o. daily, Claritin 10 mg p.o. daily, Singulair 10 mg daily, morphine 2 mg IV every 4 hours as needed, omeprazole 40 mg daily, Zofran 4 mg IV every 4 hours as needed, vancomycin dosing per pharmacy, MiraLAX 17 g p.o. b.i.d., propylene glycol eyedrops, Xarelto 20 mg daily, sotalol 80 mg p.o. at bedtime, spironolactone 20 mg daily, and vancomycin 40 mg IV every 30 hours. PHYSICAL EXAMINATION: Vital Signs: Temperature of 98.1 degrees, pulse rate of 99, respiratory rate of 18, blood pressure 112/60, saturating 100% on room air. Body weight of 156 pounds 9 ounces. BMI 25.3 kg/m2. General Appearance: Thinly built, lying in bed, in no acute distress. HEENT: Pale conjunctivae. No icterus. Nasal cannula in place. Neck: Supple. Abdomen: Distended. Tympanic on percussion. No guarding. No rebound. Discomfort in the periumbilical region. Extremities: No cyanosis, clubbing. Neurologic: Alert, awake, oriented x3. LABS: Hemoglobin and hematocrit are 10.8 and 33.4, white count of 22.39, platelet count of 292,000, MCV of 88.6%, neutrophils of 88%. Sodium 127, potassium 4.2, chloride 92, bicarb 23, anion gap 12, BUN of 25, creatinine 0.8, glucose of 181, calcium is 8.7, phosphorus 3.9, magnesium 1.7. Total bilirubin is 0.46, AST 9, ALT 8, alkaline phosphatase 100, total protein 5, albumin of 2.1. Peritoneal fluid is showing 207 white cells, polymorphonuclear white cells 57%, albumin of 1.5. SAAG is less than 1.1. LDH is 401. AFP stain in the pleural fluid, says results to follow. Fungal smear showed no budding yeast or fungi seen. Ascitic fluid showing no growth. Pleural fluid, Gram stain showed no bacteria. Culture is negative. Blood culture negative for 5 days. IMPRESSION AND PLAN: 1. Abdominal distention with ileus and constipation in the right colon and left colon. I am concerned about peritoneal carcinomatosis. All the other possibilities which can also present like this picture is narcotic bowel. She is on high doses of narcotics. 2. Intractable nausea and vomiting, bilious in nature. 3. Recurrent pleural effusions. There is a question of malignant pleural effusion. 4. Metastatic ovarian cancer with ovarian mass seen on imaging. 5. Pneumonia, leukocytosis, and high white count, on antibiotics. 6. Atrial fibrillation. She is on sotalol and Xarelto. 7. Diabetes, being managed by the primary team. RECOMMENDATIONS: 1. We will continue on laxatives. We will continue on milk of magnesia 30 mL at bedtime and lactulose 30 mL p.o. b.i.d. We will start on MiraLAX twice daily and Dulcolax twice daily. I discussed with the nursing staff about reducing the dose of narcotics to as low as possible. We will check a KUB in the morning. If her symptoms are not improving, then we may have to put an NG tube to help decompress the stomach and maybe try GoLYTELY prep through there. We will switch her to IV Protonix. 2. Please try to reduce the narcotics to as low as possible. 3. We will follow along. The above plan was discussed with the patient and the nursing staff, and all questions were answered. Please call us with any further questions. cc: MD Corwin Elizabeth MD MTDD
[2018-04-01] MEDS: SYNTHROID PO SCH (06:32)
[2018-04-01] MEDS: HUMULIN R SUBQ SCH ×4 (06:42→22:01)
[2018-04-01 07:38] LABS: BASO# 0.01 X1000 (0.0-0.2); EOS# 0.01 X1000 (0.0-0.7); HEMOGLOBIN 10.8 g/dL (12.0-16.0); IMM GRAN# 0.19 X1000 (0.0-0.04); IMM GRAN% 0.9 % (0.0-0.5); LYMPH# 0.97 X1000 (1.2-3.4); LYMPH% 4.6 % (20.5-51.1); MCH 28.5 PG (27-31); MCHC 31.8 g/dL (33-37); MCV 89.7 FL (81-99); MONO# 1.92 X1000 (0.11-0.59); MONO% 9.1 % (1.7-9.3); MPV 8.6 FL (7.4-10.4); NEUT# 17.92 X1000 (1.4-6.5); NEUT% 85.4 % (42.2-75.2); PLT 311 X1000 (130-400); RBC 3.79 XMIL (4.2-5.4); RDW 17.9 % (11.5-14.5); WBC 21.02 X1000 (4.8-10.8)
--- NOTE | 2018-04-01 07:50 | Diag Imaging Result Doc PS360 ---
KUB ABDOMEN - 04/01/2018 INDICATION: ovarian cancer with mets COMPARISON: 03/31/2018 FINDINGS: There has been very little passage of contrast from the proximal colon. There are some stable mildly gas-distended loops of small bowel in the lower abdomen and pelvis. The constipation in the distal colon has improved. IMPRESSION: Improvement from prior. Electronically signed by Abel Sahni 04/01/2018 7:47 AM
[2018-04-01 08:00] LABS: BANDS 6 % (0-1); LYMPHS 6 % (21-51); MONO 8 % (1-9); SEGS 80 % (42-75)
[2018-04-01 08:03] LABS: CALCIUM 8.2 mg/dL (8.8-10.2); POTASSIUM 4.1 mmol/L (3.5-5.1)
[2018-04-01] MEDS: SYSTANE EYE DROPS BOTH EYES SCH (08:51)
[2018-04-01] MEDS: CLARITIN PO SCH (08:51)
[2018-04-01] MEDS: MIRALAX PO SCH ×2 (08:51→22:00)
[2018-04-01] MEDS: CARDIZEM CD PO SCH (08:51)
[2018-04-01] MEDS: SINGULAIR PO SCH (08:51)
[2018-04-01] MEDS: LACTULOSE PO SCH ×2 (08:51→22:00)
[2018-04-01] MEDS: ALDACTONE PO SCH (08:51)
[2018-04-01] MEDS: LEXAPRO PO SCH (08:51)
[2018-04-01] MEDS: XARELTO PO SCH (08:51)
[2018-04-01] MEDS: LASIX IV SCH (08:51)
[2018-04-01] MEDS: DULCOLAX PR SCH ×2 (08:51→22:00)
[2018-04-01] MEDS: ZYVOX 600 MG/D5W 600 MG/300 ML IVPB IV SCH ×2 (11:12→21:56)
[2018-04-01] MEDS: NS 1,000 ML IV SCH (11:13)
--- NOTE | 2018-04-01 12:29 | PROGRESS NOTE ---
DATE: 04/01/2018 SUBJECTIVE: This patient is lying comfortably in bed. He is sleepy, but arousable, oriented x3. Yesterday, we tried with an enema to see if she can have a bowel movement. She did have a small amount of stool coming out, but not enough. She is still not passing gas. She is still distended. Gastroenterology on board. OBJECTIVE: Vital Signs: Temperature 98.3 degrees, pulse 103, respiratory rate 14, blood pressure 126/70, oxygen saturation 97 on 2 L of nasal cannula. HEENT: Head normocephalic. No trauma. PERRLA. Neck: Supple. No JVD. No masses. Central trachea. Chest: Decreased breath sounds at the bases with crepitus at the bases as well. Abdomen: Soft, distended. Decreased bowel sounds. No signs of peritoneal irritation, but mild generalized tenderness to palpation. Extremities: 2+ lower extremity edema. No clubbing. No cyanosis. Neurological examination: The patient is alert and oriented x3. No focal deficits. LABORATORY: WBC 21, hemoglobin 10.8, hematocrit 34, platelets 311. Sodium 129, potassium 4.1, chloride 94, bicarbonate 26. BUN 30, creatinine 1, glucose 195, calcium 8.2. ASSESSMENT AND PLAN: 1. Intractable nausea, vomiting likely secondary to constipation/ileus or partial bowel obstruction. This patient has ovarian cancer with likely peritoneal carcinomatosis. There is a high risk of having obstruction because of that condition, and she has not been having a real bowel movement for the past 3 to 4 days. Gastroenterology Department on board. We will continue with the same management. 2. Recurrent pleural effusion on the left side which apparently was malignant on the last assay. Surgery Department evaluated this patient. They were about to place a PleurX catheter 5 days ago, but the patient refused. Hematology/Oncology on board. 3. Leukocytosis and pneumonia. Continue with antibiotics. I will stop the vancomycin and I have placed this patient on Zyvox due to an increase of the BUN and creatinine. This decision has been discussed with Infectious Disease Department. 4. Metastatic ovarian cancer with likely also peritoneal carcinomatosis. She has been followed by Dr. Olvera. We will follow recommendations. 5. Atrial fibrillation, rate controlled. Continue with sotalol. 6. Diabetes. Continue with the same management. 7. Hyponatremia. Continue with same treatment. Stable for the past few days. 8. Nutritional status. Continue with Clinimix for now. 9. Mild acute kidney injury. Continue with intravenous fluids. I will hold furosemide and we will avoid nephrotoxic medications. cc: Demarcus Garza MD
--- NOTE | 2018-04-01 16:50 | Diag Imaging Result Doc PS360 ---
CHEST-PORTABLE - 04/01/2018 INDICATION: NG tube placement COMPARISON: 03/31/2018 FINDINGS: There has been placement of a nasogastric tube in good position in the distal stomach. Stable right chest port. Stable moderate left pleural effusion. IMPRESSION: Nasogastric tube in good position in the distal stomach. Electronically signed by Abel Sahni 04/01/2018 4:48 PM
--- NOTE | 2018-04-01 17:34 | INFECTIOUS DISEASE PROGRESS NO ---
DATE: 04/01/2018 PRESENT ILLNESS: The patient has a leukocytosis which in the last few days has been improving. I am uncertain as the cause of her leukocytosis. Her latest chest x-ray does not show pneumonia. The patient did have her have the peritoneal mass aspirated, and it shows a white cell count of 207 and the culture is negative. Therefore, it would not appear that the patient has an infection in the left-sided abdominal mass at this time. The patient does have metastatic ovarian cancer. MEDICATIONS: 1. I agree with Dr. Pinzon stopping vancomycin and starting Zyvox because the patient's creatinine increased. 2. Also, the patient is on aztreonam. PHYSICAL EXAMINATION: Vital Signs: Temperature is 99 degrees, pulse 103, respirations 14, blood pressure 125/65. General: This is a chronically ill-appearing elderly female. She has been vomiting all day. Head/eyes/ears/nose/throat: She can hear my spoken words and see near objects. She does not have any white patches on her tongue. Neck: No meningismus. Lungs: Clear to auscultation. Cardiovascular: Heart rate is regular. Thorax: The patient has a Port-A-Cath present on the right side. The Port-A-Cath site is not erythematous or draining. Abdomen: Somewhat distended. It is soft, and it did not appear to be tender. Neurologic: The patient is alert. She can move her extremities, but she is weak. There is no tremor. DIAGNOSTIC STUDIES: Chest x-ray showed left lower lobe pleural effusion but no infiltrate. X-ray of the abdomen showed constipation. Peritoneal fluid: White blood cell count was 207, of which 57% were polymorphonuclear cells. Culture of the peritoneal fluid is negative, as mentioned above. ASSESSMENT AND PLAN: At this time, I do not have a definite infection that we are treating. Her white count, though, is coming down, and I think it would be reasonable to continue treating with antibiotics. The patient has been on now aztreonam for 7 days, and yesterday the patient was switched from vancomycin to Zyvox. COMORBIDITIES: 1. She has metastatic ovarian cancer. 2. She also has diabetes mellitus. 3. Gastroesophageal reflux disease. cc: Sp Soria MD
--- NOTE | 2018-04-01 18:02 | GASTROENTEROLOGY PROGRESS NOTE ---
DATE: 04/01/2018 SUBJECTIVE: The patient is resting in bed. Her daughter is present at the bedside. The patient has not moved her bowels despite being on lactulose b.i.d., MiraLAX twice daily , and Dulcolax. Her abdomen is tense today. She has continued to have nausea and vomiting and unable to keep anything down. OBJECTIVE: Vital signs: Temperature 98.3 degrees, pulse rate of 103, respiratory rate 14, blood pressure of 126/70, saturating 97% on 2 L nasal cannula. General Appearance: Moderately built, well nourished, lying in bed, in no acute distress. HEENT: Mild pallor. No icterus. Neck: Supple. Abdomen: Distended and tympanic on percussion. Discomfort in the pelvic region. No rebound. Extremities: Bilateral lower extremity edema noted. Neurological: She is awake, alert, oriented x3. DIAGNOSTIC STUDIES: Hemoglobin is 10.8, hematocrit 34, white count 21.02, platelet count of 311,000, MCV of 89.7. Sodium 129, potassium 4.1, chloride 94, bicarbonate 26, anion gap 9, BUN of 30, creatinine 1, glucose of 195, calcium 8.2. Albumin of 2.1. Ascitic fluid culture is negative. IMPRESSION AND PLAN: 1. Small-bowel ileus, colonic ileus, abdominal distention. I am concerned about peritoneal carcinomatosis as patient had no response to milk of magnesia, lactulose, MiraLAX, and Dulcolax. We discussed the option of doing NG tube placement for possible suction to help treat her belly distention. We may consider doing GoLYTELY if tolerated. 2. Chronic pain, on a high dose of narcotics. I discussed with the patient and family that we may have to try to reduce the dose of narcotics to the lowest possible to help improve ileus. 3. Gastrointestinal (GI) prophylaxis with PPIs. 4. Anemia. Continue to watch for now. 5. Malnutrition. She is on Clinimix. 6. She is on Xarelto for atrial fibrillation, so the risk of any kind of procedure, including NG tube placement, is slightly high. 7. Leukocytosis and pneumonia. She is on antibiotics. 8. Recurrent pleural effusion on the left side. Aware. 9. Malnutrition and hypoalbuminemia. The patient has poor oral intake. She is on low-dose Clinimix. 10. Metastatic ovarian cancer with suspected peritoneal carcinomatosis. We have discussed with the nursing staff. We will follow up on recommendation of Dr. Olvera. The above plans were discussed with the patient and the family at bedside,and all questions answered. Please call us with any further questions. cc: MD Corwin Elizabeth MD MTDD
[2018-04-01] MEDS: DURAGESIC 12 MICROGM/HR PATCH TD SCH (18:10)
[2018-04-01] MEDS: CLINIMIX E 4.25%-5% SOLUTION 1,000 ML IV SCH (18:10)
[2018-04-01] MEDS: DURAGESIC 25 MICROGM/HR PATCH TD SCH (18:10)
[2018-04-01] MEDS: MILK OF MAGNESIA PO SCH (22:00)
[2018-04-01] MEDS: BETAPACE PO SCH (22:00)
[2018-04-01] MEDS: PRAVACHOL PO SCH (22:01)
[2018-04-02] MEDS: MYCELEX TROCHE PO SCH ×4 (02:42→22:44)
[2018-04-02] MEDS: DUONEB (A & A) INH SCH ×4 (05:21→21:05)
[2018-04-02] MEDS: AZACTAM 2 GM in NS 100 ML IV SCH ×2 (05:48→12:35)
[2018-04-02] MEDS: PROTONIX IV SCH ×2 (05:48→17:32)
[2018-04-02] MEDS: HUMULIN R SUBQ SCH ×4 (06:24→21:03)
[2018-04-02] MEDS: SYNTHROID PO SCH (06:24)
[2018-04-02] MEDS: XARELTO PO SCH (08:18)
[2018-04-02] MEDS: MIRALAX PO SCH ×2 (08:19→22:46)
[2018-04-02] MEDS: SINGULAIR PO SCH (08:19)
[2018-04-02] MEDS: LACTULOSE PO SCH ×2 (08:20→22:45)
[2018-04-02] MEDS: LEXAPRO PO SCH (08:20)
[2018-04-02] MEDS: CARDIZEM CD PO SCH (08:20)
[2018-04-02] MEDS: DULCOLAX PR SCH ×2 (08:20→22:45)
[2018-04-02] MEDS: CLARITIN PO SCH (08:20)
[2018-04-02] MEDS: SYSTANE EYE DROPS BOTH EYES SCH (09:42)
[2018-04-02] MEDS: ZYVOX 600 MG/D5W 600 MG/300 ML IVPB IV SCH (09:42)
[2018-04-02] MEDS: NS 1,000 ML IV SCH (09:42)
[2018-04-02] MEDS ORDERED: GOLYTELY PO ONE ×3 (09:46→14:00)
--- NOTE | 2018-04-02 10:23 | GASTROENTEROLOGY PROGRESS NOTE ---
DATE: 04/02/2018 SUBJECTIVE: The patient is resting in bed. She had an NG tube placed yesterday. She has put out so far 200 mL. The aspirate appears to be greenish, bilious, and with a brownish tinge to it. She has not had any bowel activity so far. Her abdomen is less distended. She has not thrown up since insertion of the NG tube. PHYSICAL EXAMINATION: Vital Signs: Temperature of 97.6, pulse rate of 88, respiratory rate of 17, blood pressure 114/69, saturating 98% on nasal cannula. General Appearance: Moderately built, moderately nourished, lying in bed, in no acute distress. HEENT: Mild pallor. NG tube in place. No icterus. Neck: Supple. Abdomen: Distended. Tympanic on percussion. Abdomen is distended, discomfort in the pelvic region. Extremities: No cyanosis, clubbing. Bilateral lower extremity edema noted. Neurologic: She is alert, awake, oriented x3. LABS: Her hemoglobin and hematocrit are 10.8 and 34 from yesterday. They have not done any labs today. On lab today, 196 is the blood glucose. Also, she had a chest x-ray done which showed nasogastric tube in good position in the distal stomach. ASSESSMENT AND PLAN: 1. Small bowel ileus and colonic ileus, and abdominal distention. This improved a little bit with nasogastric tube insertion. We will try to clamp the tube and then try 500 mL of GoLYTELY through it and then recheck with nasogastric tube suction. I am suspecting peritoneal carcinomatosis. If she does not have a good bowel movement with GoLYTELY, then we may have to talk to the oncologist and possible surgical consultation for further palliative options. 2. Chronic pain. She is on a high dose of narcotics. We discussed lowering the dose of narcotics to as low as possible. 3. Anemia. Continue to watch for now. 4. Malnutrition. She is on Clinimix. 5. She has atrial fibrillation, on Xarelto. 6. Leukocytosis and pneumonia. She is on antibiotics per Dr. Soria. 7. Metastatic ovarian cancer with suspected peritoneal carcinomatosis. Dr. Olvera is the primary oncologist. We will follow up on his opinion. 8. Gastrointestinal prophylaxis with proton pump inhibitors. 9. The above plan was discussed with the patient and family at bedside. All questions were answered. I also spoke with the patient's nursing staff. The patient will be kept on aspiration precautions. cc: MD Demarcus Elizabeth MD Sammy Becdach, MD
--- NOTE | 2018-04-02 10:55 | PROGRESS NOTE ---
DATE: 04/02/2018 SUBJECTIVE: This patient is lying comfortably in bed. She is oriented x3. She is still has abdominal distention, but she is not complaining of pain. She is not passing gas, no bowel movements, decreased bowel sounds. An NG tube has been placed. Gastroenterology Department on board. Likely she has an ileus versus bowel obstruction. She does have a history of ovarian cancer and likely peritoneal carcinomatosis which increases the possibility of obstruction. OBJECTIVE: Vital Signs: Temperature 97.6 degrees, pulse 88, respiratory rate 17, blood pressure 114/69, oxygen saturation 99 on 2 L of nasal cannula. HEENT: Head normocephalic. No trauma. PERRLA. Neck: Supple. No JVD. No masses. Central trachea. Chest: Decreased breath sounds at the bases with crepitus at the bases as well. Abdomen: Abdomen is tense, distended. Decreased bowel sounds. No signs of peritoneal irritation. Extremities: 2+ to 3+ lower extremity edema. No clubbing. No cyanosis. Neurological: This patient is alert and oriented x3. No focal deficits. DIAGNOSTIC STUDIES: Pending lab work today. ASSESSMENT AND PLAN: 1. Intractable nausea/vomiting, likely secondary to constipation versus ileus versus a small- bowel obstruction. The patient has ovarian cancer with likely peritoneal carcinomatosis. There is a high risk of having obstruction because of that condition, and she has not been having a real bowel movement for the past 4 days or so. Gastroenterology Department following this patient. An NG tube has been placed continue with the same management. 2. Recurrent pleural effusion on the left side, which apparently was malignant on the last assay. Surgery Department evaluated this patient. They were about to place a PleurX catheter 6 days ago, but the patient refused. Hematology/Oncology is also on board. 3. Leukocytosis and pneumonia. Continue with antibiotics. Infectious Disease Department on board. We will continue with aztreonam and Zyvox. 4. Metastatic ovarian cancer with likely also peritoneal carcinomatosis. She has been followed by Dr. Olvera. Wait for recommendations. Probably this is the cause of the obstruction. 5. Atrial fibrillation, rate controlled. Continue with sotalol. 6. Diabetes. Continue with same management. 7. Hyponatremia. For now, we will continue with the same treatment. 8. Nutritional status. Continue with Clinimix for now. 9. Mild acute kidney injury. Pending lab work today. Palliative care and Dr Olvera already talked to the patient, it looks like she will go home with Hospice, probably tomorrow. cc: Demarcus Garza MD MTDD
[2018-04-02] MEDS: CLINIMIX E 4.25%-5% SOLUTION 1,000 ML IV SCH (12:35)
[2018-04-02 13:04] LABS: BASO# 0.01 X1000 (0.0-0.2); BASO% 0.1 % (0.0-0.8); EOS# 0.01 X1000 (0.0-0.7); EOS% 0.1 % (0.0-10.0); HEMATOCRIT 31.1 % (37.0-47.0); HEMOGLOBIN 9.7 g/dL (12.0-16.0); IMM GRAN# 0.11 X1000 (0.0-0.04); IMM GRAN% 0.7 % (0.0-0.5); LYMPH# 0.72 X1000 (1.2-3.4); LYMPH% 4.4 % (20.5-51.1); MCH 28.2 PG (27-31); MCHC 31.2 g/dL (33-37); MCV 90.4 FL (81-99); MONO# 1.36 X1000 (0.11-0.59); MONO% 8.3 % (1.7-9.3); MPV 8.4 FL (7.4-10.4); NEUT# 14.18 X1000 (1.4-6.5); NEUT% 86.4 % (42.2-75.2); PLT 269 X1000 (130-400); RBC 3.44 XMIL (4.2-5.4); RDW 17.3 % (11.5-14.5); WBC 16.39 X1000 (4.8-10.8)
[2018-04-02 13:09] LABS: BANDS 4 % (0-1); LYMPHS 6 % (21-51); MONO 4 % (1-9); SEGS 86 % (42-75)
--- NOTE | 2018-04-02 13:19 | GENERAL SURGERY PROGRESS NOTE ---
DATE: 04/02/2018 SUBJECTIVE: I was asked to see the patient today by Dr. Rocha for her bowel dysfunction. She apparently has had trouble passing any stool and has had intractable nausea and vomiting. This is felt to be due to the disease in her abdomen from ovarian cancer. Currently the patient denies abdominal pain. She thinks she passed some gas yesterday. OBJECTIVE: Vital signs: She is afebrile. Vital signs are stable. General: She is alert and oriented x3. No acute distress. GI: Nondistended but there is a fullness. No rebound or guarding. IMAGING: Her x-ray tests show some constipation. A CT scan done last week shows a very large left abdominal retroperitoneal mass that appears to be compressing the descending colon and likely obstructing at the transverse colon level. ASSESSMENT AND PLAN: This is an 78-year-old female with stage IV ovarian cancer and now probable large bowel obstruction secondary to abdominal mass or carcinomatosis. We will start with a small bowel x-ray series to check for patency of the small bowel and further recommendations will be given after this test. She may ultimately need a loop diverting colostomy but would also consider draining the left abdominal fluid-filled mass for relief of the compression of the colon. cc: Edu Hilario MD
[2018-04-02 13:22] LABS: AGAP 7; ALB/GLOB RATIO 0.8; ALBUMIN 2.2 g/dL (3.5-5.0); ALKALINE PHOSPHATASE 89 U/L (32-104); BUN 33 mg/dL (8-22); CALCIUM 8.3 mg/dL (8.8-10.2); CHLORIDE 92 mmol/L (98-107); COSMO 262; CREATININE 0.8 mg/dL (0.5-0.9); ESTIMATED GFR > 60; GLUCOSE 194 mg/dL (70-104); GOT 8 U/L (10-30); GPT 5 U/L (10-36); POTASSIUM 3.7 mmol/L (3.5-5.1); SODIUM 124 mmol/L (136-145); TCO2 25 mmol/L (25-35); TOTAL BILIRUBIN 0.28 mg/dL (0.20-1.00); TOTAL PROTEIN 4.8 g/dL (6.3-8.3)
[2018-04-02] MEDS: MORPHINE IV PRN (15:18)
[2018-04-02] MEDS: DILAUDID IV PRN (18:42)
[2018-04-02] MEDS: BETAPACE PO SCH (22:45)
[2018-04-02] MEDS: PRAVACHOL PO SCH (22:46)
[2018-04-02] MEDS: MILK OF MAGNESIA PO SCH (22:46)
[2018-04-03] MEDS: CLINIMIX E 4.25%-5% SOLUTION 1,000 ML IV SCH (00:42)
[2018-04-03] MEDS: DUONEB (A & A) INH SCH ×2 (03:05→11:31)
[2018-04-03] MEDS: DILAUDID IV PRN ×2 (06:01→11:05)
[2018-04-03] MEDS: MYCELEX TROCHE PO SCH ×2 (06:04→09:40)
[2018-04-03] MEDS: PROTONIX IV SCH (06:07)
[2018-04-03] MEDS: SYNTHROID PO SCH (06:44)
[2018-04-03] MEDS: HUMULIN R SUBQ SCH (06:44)
[2018-04-03 07:59] VITALS: BP 122/62
[2018-04-03] MEDS: XARELTO PO SCH (09:40)
[2018-04-03] MEDS: LEXAPRO PO SCH (09:41)
[2018-04-03] MEDS: LACTULOSE PO SCH (09:41)
[2018-04-03] MEDS: DULCOLAX PR SCH (09:41)
[2018-04-03] MEDS: CLARITIN PO SCH (09:41)
[2018-04-03] MEDS: CARDIZEM CD PO SCH (09:41)
[2018-04-03] MEDS: MIRALAX PO SCH (09:42)
[2018-04-03] MEDS: SINGULAIR PO SCH (09:42)
--- NOTE | 2018-04-03 11:23 | GASTROENTEROLOGY PROGRESS NOTE ---
DATE: 04/03/2018 SUBJECTIVE: No acute overnight events. Afebrile. Patient denies N/V, SOB, CP. She reports some diffuse abdominal pain that is chronic. She denies having bowel movements with golytely administration through NGT yesterday. During time of interview, patient and daughter were meeting with hospice loan representative and planning for discharge home with hospice. OBJECTIVE: Vital signs: Temperature 97.7, heart rate 98, respiratory rate 18, blood pressure 122/62, O2 saturation 100% on 2 L nasal cannula. GEN: awake, alert, NAD HEENT: anicteric, MMM, NGT in place NECK: no JVD, NAD CV: RRR, no mrg PULM: coarse BS throughout; no wheezing or crackles ABD: protuberant, NT, palpable intraabdominal mass, no TTP, bowel sounds present EXT: WWP, no c/c SKIN: scattered bruising in UEs LABS: None A/P: Ms. Verde is a 78 year old woman with history of metastatic ovarian cancer with liver metastasis, ?malignant pleural effusions, and peritoneal carcinomatosis admitted with pneumonia and small bowel/colonic ileus likely from paraneoplastic process +/- opioid induced +/- extrinsic compression from ovarian mass. Patient had some improvement of her functional obstruction with NGT decompression; however, continues to remain constipated. Most recent KUB showed some improvement, particularly left-sided. The patient is currently planning on going home with hospice services at this time. #SB/colonic ileus - discontinue NGT - start clear liquid diet and advance as tolerated for comfort - continue lactulose and miralax for constipation - continue antiemetics as needed for nausea/vomiting - seen by surgery, apprec recs #Pneumonia: completed course of abx as per ID #Metastatic ovarian cancer: defer mgmt to oncology; it appears patient is opting to go home with hospice #Anemia: no overt bleeding: switch PPI PO once daily #Afib: controlled; on Xarelto #Malnutrition: on Clinimix #Leukocytosis: 2/2 to PNA, acute phase #Chronic pain: from malignancy; on analgesics per primary Will sign off. Please call with questions or concerns. [facility]
[2018-04-03] MEDS ORDERED: DILAUDID IV ONE (12:26)
[2018-04-03] MEDS: PHENERGAN IV PRN (12:30)
--- NOTE | 2018-04-03 14:53 | DISCHARGE SUMMARY ---
ADMISSION DATE: 03/19/2018 DISCHARGE DATE: 04/03/2018 CONSULTATIONS: 1. Dr. Mayito Sosa with General Surgery. 2. Dr. Soria with Infectious Disease. 3. Dr. Rocha with Gastroenterology. PRIMARY PROCEDURES: 1. Pulmonary arteriogram: No evidence of pulmonary emboli, bilateral pleural effusions and a scar enlargement of the right adrenal gland and large left abdominal pelvic mass. 2. Echocardiogram: EF of 55% to 60% 3. Bilateral Venous Doppler: Lower extremity Doppler showed no evidence of DVT. 4. Thoracentesis performed by Dr. Atkins. He got around 800-850 mL of bloody effusion off. 5. Abdomen and pelvis CT: Metastatic cancer, moderate constipation, pleural effusion, ascites and body wall edema. 6. Ultrasound-guided paracentesis: They got off 50 mL of blood-tinged, slightly turbid fluid. 7. Abdominal x-ray: Mildly distended small loops of bowel concerning for partial obstruction. DISCHARGE DIAGNOSES: 1. Intractable nausea, vomiting likely secondary to constipation versus ileus versus small-bowel obstruction. The patient has ovarian cancer, likely peritoneal carcinomatosis. She is at high risk of having obstruction because of that condition. She has not been having any real bowel movements for the last 4 or 5 days or so. She has been followed by GI as well as General Surgery. NG tube had been placed and has now been discontinued. She has been tolerating a clear liquid diet. She is to advance as tolerated for comfort. Continue her lactulose and MiraLAX for constipation and antiemetics for nausea and vomiting. Under direction of her oncologist, she has decided to go home with hospice. 2. Recurrent pleural effusion on the left side. She has had 2 thoracentesis. She was transferred from [place] to have a PleurX catheter placed, but the patient has refused. 3. Leukocytosis and questionable pneumonia. The patient was on antibiotics and followed by Dr. Sp Soria. However, she does not radiographically have any evidence of pneumonia. 4. Metastatic ovarian cancer with likely peritoneal carcinomatosis again followed by Hematology/Oncology and patient will be discharged home with hospice. 5. Atrial fibrillation rate controlled. 6. Diabetes. 7. Hyponatremia. 8. Nutritional status. The patient is tolerating a clear diet. She is to advance as she can. 9. Mild acute kidney injury. Resolved. 10. Elevated D-dimer. The patient was ruled out for pulmonary edema and deep venous thrombosis with imaging. 11. Leukocytosis likely reactive. 12. Anasarca. HOSPITAL COURSE: Briefly, Ms. Verde is an 78-year-old female who was admitted to the hospitalist service on 03/19/2018 at [facility] for shortness of breath. She had imaging done that showed no PE but did show bilateral pleural effusions, anasarca and enlargement of the right adrenal gland and a large left abdominopelvic mass. She has a history of ovarian cancer was diagnosed [address] Olvera. During her hospital stay, they noted abdominal distention and chronic worsening constipation. Her imaging with abdominal x-ray showed constipation in the proximal colon and sigmoid colon. She was given laxatives with partial relief. She also underwent a thoracentesis with Dr. Atkins where he removed roughly 800 to 850 mL of blood-tinged fluid and she started to reaccumulate again. She was transferred over from [place] to [facility] for possible PleurX drain catheter with General Surgery. However, the patient has refused. She continued to have abdominal pain and continued to have intractable nausea and vomiting, likely secondary to constipation versus ileus versus small-bowel obstruction. They did place an NG tube. She was looked at by General Surgery for possible loop diverting colostomy as well as consideration of draining her left abdominal fluid-filled mass for relief of the compression of the colon. Her NG tube has since been discontinued. She was initiated on a clear liquid diet and advance as tolerated for comfort. She will continue on lactulose and MiraLAX for constipation as well as antiemetics for nausea and vomiting and has spoke with her oncologist and they have agreed that she will be discharged home with a hospice of [facility]. VITAL SIGNS: At time of discharge, temperature is 97.6 degrees, heart rate 95, respirations 18, blood pressure 112/59, O2 is 100% on 2 L nasal cannula. DISCHARGE DIET: Clear. Advance as tolerated for comfort. DISCHARGE MEDICATIONS: 1. Cardia XT 120 mg p.o. daily. 2. Stool softener 200 mg p.o. at bedtime. 3. Lexapro 10 mg p.o. daily. 4. Fentanyl 3.75 each TD q.72 hours. 5. Lasix 20 mg p.o. b.i.d. 6. Glipizide 5 mg tablet p.o. b.i.d. 7. [place] 10/325 one each p.o. b.i.d. p.r.n. 8. Claritin 10 mg p.o. daily. 9. Glucophage 500 mg p.o. b.i.d. 10. Singulair 10 mg p.o. daily. 11. Prilosec 40 mg p.o. at bedtime. 12. Zofran 4 mg p.o. t.i.d. p.r.n. 13. Potassium chloride 20 mEq p.o. daily. 14. Pravachol 40 mg p.o. at bedtime. 15. Systane Balance 1 drop both eyes daily. 16. Xarelto 20 mg p.o. daily. 17. Betapace 80 mg p.o. at bedtime. 18. Aldactone 25 mg p.o. daily. 19. Synthroid 100 mcg p.o. daily. 20. Fentanyl/Duragesic patch 12 mcg 1 each TD q.72 hours. 21. Fentanyl/Duragesic 25 mcg patch 1 each TD q.72 hours. DISPOSITION: Ms. Verde is being discharged home with [facility]. Dictated by RAMONITA Kendrick for Dion Echavarria MD Addendum: Patient seen and examined by myself. Agree with RAMONITA note. It reflects my assessment and plan. Patient is being discharged in stable condition to home with hospice who are going to take care of patient. cc: MD Corwin Mercedes MD Manish Arora, MD Matthew L. Figh, MD Leroy F. Harris, MD MTDD
== END 2018-04-03 13:00 | disposition hospice, home (50) | DRG 180 ==
LOC: P.ED 11:08 → SUATTDRO 15:13 → P.MEDSURG 15:13 → 3N 03-25 19:07
PROVIDERS: ATTEND Internal Medicine
CPT/HCPCS: 32421; 32555; 36415; 49083; 71010; 71020; 71045; 71046; 71275; 74000; 74018; 74019; 74020; 74177; 80048; 80053; 80076; 81050; 82042; 82150; 82550; 82945; 82948; 83036; 83615; 83735; 83880; 83935; 83986; 84100; 84156; 84157; 84300; 84443; 84484; 85025; 85027; 85379; 85610; 85730; 87015; 87040; 87070; 87102; 87116; 87147; 87205; 87206; 89050; 89051; 93005; 93306; 93970; 94640; 94761; 96374; 96375; 97116; 97162; 97165; 97530; 97535; 99285; A9270; C9113; J0878; J1170; J1815; J1940; J1956; J2020; J2270; J2405; J2543; J2550; J3370; J3480; J7030; J7042; J7050; P9047; Q9967; S0073; S0164; XXXXX